=== PATIENT | male | born 1965 | race Caucasian/White ===

== ENCOUNTER 2018-11-06 10:36 | Emergency (ER) | payer BC, SELFPAY ==
[2018-11-06 11:54] LABS: Absolute Lymphocytes (CBC) 0.3 K/uL (0.7-4.9); Absolute Monocytes 0.4 K/uL (0.1-1.3); Absolute Neutrophil 2.5 K/uL (1.8-8.0); Basophils % 0.8 % (0-1.3); Eosinophils % 1.2 % (0-4.4); Hematocrit 27.8 % (39.6-49.0); MPV 6.4 fL (7.6-11.3); Monocytes % 11.2 % (3.3-12.3); RBC Red Blood Cell Count 3.47 M/uL (4.33-5.43)
[2018-11-06 11:59] LABS: Protime INR 1.15
[2018-11-06 12:15] LABS: ALT/SGPT 38 U/L (12-78); AST/SGOT 42 U/L (15-37); Albumin 2.4 g/dL (3.4-5.0); Alkaline Phosphatase 308 U/L (45-117); BUN Blood Urea Nitrogen 38 mg/dL (7-18); Bicarbonate 25 mmol/L (21-32); Bilirubin Direct 0.6 mg/dL (0-0.2); Glucose Level 140 mg/dL (74-106); Magnesium 1.5 mg/dL (1.8-2.4); NT PRO-BNP 4495 pg/mL (<125); Potassium 3.1 mmol/L (3.5-5.1); Protein, Total 7.4 g/dL (6.4-8.2); Sodium Level 138 mmol/L (136-145); Troponin (Emerg Dept Use Only) < 0.02 ng/mL (0.0-0.045)
[2018-11-06] MEDS ORDERED: NA CHLORIDE 0.9% 1,000 ML ONE (12:37)
--- NOTE | 2018-11-06 12:45 | RAD REPORT ---
EXAM DESCRIPTION: RAD - Chest Single View - 11/06/2018 12:39 pm CLINICAL HISTORY: MALAISE Chest pain. COMPARISON: No comparisons FINDINGS: Portable technique limits examination quality. The lungs are underinflated resulting in vascular crowding. The heart is normal in size. No displaced fractures. IMPRESSION: Underinflated lungs.
[2018-11-06 12:46] LABS: Urine Blood TRACE (NEG); Urine Glucose 1+ (NEG); Urine Protein 1+ (NEG)
[2018-11-06] MEDS ORDERED: POTASSIUM 25 MEQ EFFERV TAB ONE (12:47)
[2018-11-06] MEDS ORDERED: Magnesium Sulfate 2gm IVPB 2 G/50 ML BAG IV ONE (12:48)
[2018-11-06 12:55] LABS: Urine RBC <5 /HPF (NONE SEEN)
[2018-11-06 12:56] LABS: Urine Bacteria <20 /HPF (NONE SEEN); Urine Culture Reflex Order REFLEXED; Urine Yeast PRESENT (NONE SEEN)
--- NOTE | 2018-11-06 14:40 | EDPHYS ---
Physician Documentation [facility] Name: Savage Szymanski Age: 53 yrs Sex: Male : 1965 Arrival Date: 11/06/2018 Time: 10:38 Bed 13 Private MD: ED Physician Abdullahi Uribe HPI: 11/06 13:48 This 53 yrs old Male presents to ER via EMS with complaints of General gs Weakness. 13:48 The patient presents to the emergency department with weakness of the entire body, gs generalized weakness, that is moderate. Onset: The symptoms/episode began/occurred 1 month(s) ago, and became persistent. Associated signs and symptoms: Pertinent negatives: altered mental status, dizziness, fever, headache, syncope. Severity of symptoms: At their worst the symptoms were moderate in the emergency department the symptoms are unchanged. Current symptoms: Currently, the patient is not experiencing any symptoms. The patient has experienced similar episodes in the past, multiple times. Historical: - Allergies: 10:30 No Known Allergies; rb1 - Home Meds: 10:30 Metformin Oral [Active]; Insulin [Active]; Metoprolol Tartrate Oral [Active]; rb1 - PMHx: 10:30 Hypertension; Diabetes - IDDM; Legally blind; rb1 - PSHx: 10:30 Bilateral BKA; rb1 - Immunization history:: Adult Immunizations up to date. - Social history:: Smoking status: Patient uses tobacco products, chewing tobacco. - Ebola Screening: : Patient negative for fever greater than or equal to 101.5 degrees Fahrenheit, and additional compatible Ebola Virus Disease symptoms. ROS: 13:48 All other systems are negative. gs Exam: 13:48 Head/Face: Normocephalic, atraumatic. Eyes: Pupils equal round and reactive to light, gs extra-ocular motions intact. Lids and lashes normal. Conjunctiva and sclera are non-icteric and not injected. Cornea within normal limits. Periorbital areas with no swelling, redness, or edema. ENT: Nares patent. No nasal discharge, no septal abnormalities noted. Tympanic membranes are normal and external auditory canals are clear. Oropharynx with no redness, swelling, or masses, exudates, or evidence of obstruction, uvula midline. Mucous membranes moist. Neck: Trachea midline, no thyromegaly or masses palpated, and no cervical lymphadenopathy. Supple, full range of motion without nuchal rigidity, or vertebral point tenderness. No Meningismus. Chest/axilla: Normal chest wall appearance and motion. Nontender with no deformity. No lesions are appreciated. Cardiovascular: Regular rate and rhythm with a normal S1 and S2. No gallops, murmurs, or rubs. Normal PMI, no JVD. No pulse deficits. Respiratory: Lungs have equal breath sounds bilaterally, clear to auscultation and percussion. No rales, rhonchi or wheezes noted. No increased work of breathing, no retractions or nasal flaring. Abdomen/GI: Soft, non-tender, with normal bowel sounds. No distension or tympany. No guarding or rebound. No evidence of tenderness throughout. Back: No spinal tenderness. No costovertebral tenderness. Full range of motion. Skin: Warm, dry with normal turgor. Normal color with no rashes, no lesions, and no evidence of cellulitis. Neuro: Awake and alert, GCS 15, oriented to person, place, time, and situation. Cranial nerves II-XII grossly intact. Motor strength 5/5 in all extremities. Sensory grossly intact. Cerebellar exam normal. Normal gait. 13:48 Constitutional: The patient appears alert, awake. 13:48 Musculoskeletal/extremity: Exam is negative for acute changes. Vital Signs: 10:30 BP 178 / 109; Pulse 96; Resp 19; Temp 97.7(O); Pulse Ox 100% on R/A; Weight 72.57 kg rb1 (R); Height 4 ft. 5 in. (134.62 cm) (R); Pain 0/10; 11:30 BP 153 / 80; Pulse 96; Resp 17; Pulse Ox 100% on R/A; rb1 12:30 BP 161 / 97; Pulse 95; Resp 16; Pulse Ox 99% on R/A; rb1 13:29 BP 162 / 90; Pulse 88; Resp 17; Pulse Ox 98% on R/A; rb1 14:28 BP 158 / 88; Pulse 92; Resp 16; Pulse Ox 99% on R/A; Pain 0/10; rb1 15:28 BP 157 / 91; Pulse 93; Resp 17; Pulse Ox 96% on R/A; rb1 10:30 Body Mass Index 40.05 (72.57 kg, 134.62 cm) rb1 MDM: 10:42 Patient medically screened. [facility] 13:48 Data reviewed: vital signs, nurses notes, lab test result(s), EKG, radiologic studies. Counseling: I had a detailed discussion with the patient and/or guardian regarding: the historical points, exam findings, and any diagnostic results supporting the discharge/admit diagnosis, lab results, radiology results, the need for outpatient follow up. Response to treatment: the patient's symptoms have markedly improved after treatment. 11/06 10:46 Order name: Basic Metabolic Panel; Complete Time: 12:28 11/06 10:46 Order name: CBC with Diff; Complete Time: 12: 11/06 10:46 Order name: LFT's; Complete Time: 12: 11/06 10:46 Order name: Magnesium; Complete Time: 12: 11/06 10:46 Order name: NT PRO-BNP; Complete Time: 12: 11/06 10:46 Order name: PT-INR; Complete Time: 12: 11/06 10:46 Order name: Troponin (emerg Dept Use Only); Complete Time: 12: 11/06 10:46 Order name: Urine Microscopic Only; Complete Time: 13: 11/06 10:46 Order name: XRAY Chest (1 view); Complete Time: 13: 11/06 10:46 Order name: EKG; Complete Time: 10:48 11/06 10:46 Order name: Cardiac monitoring; Complete Time: 12:49 11/06 10:46 Order name: EKG - Nurse/Tech; Complete Time: 12:49 11/06 10:46 Order name: IV Saline Lock; Complete Time: 12:49 11/06 10:46 Order name: Labs collected and sent; Complete Time: 12:49 11/06 10:46 Order name: O2 Per Protocol; Complete Time: 12:49 11/06 10:49 Order name: Urine Culture [facility] 11/06 12:44 Order name: Urine Dipstick--Ancillary (enter results); Complete Time: 13:09 11/06 10:46 Order name: O2 Sat Monitoring; Complete Time: 12:49 11/06 10:46 Order name: Urine Dipstick-Ancillary (obtain specimen); Complete Time: 12:49 11/06 10:49 Order name: Cardiac monitoring; Complete Time: 13:51 [facility] 11/06 10:49 Order name: EKG - Nurse/Tech; Complete Time: 11:30 [facility] 11/06 10:49 Order name: IV Saline Lock; Complete Time: 13:50 [facility] 11/06 10:49 Order name: Labs collected and sent; Complete Time: 13:50 [facility] 11/06 10:49 Order name: O2 Per Protocol; Complete Time: 11:30 [facility] 11/06 10:49 Order name: O2 Sat Monitoring; Complete Time: 11:30 [facility] 11/06 10:49 Order name: Urine Dipstick-Ancillary (obtain specimen); Complete Time: 13:49 [facility] Administered Medications: 12:20 Drug: NS 0.9% 1000 ml Route: IV; Rate: 1 bolus; Site: right antecubital; rb1 13:41 Follow up: IV Status: Completed infusion rb1 12:43 Drug: Magnesium Sulfate 2 grams Route: IVPB; Infused Over: 2 hrs; Site: right rb1 antecubital; 12:43 Drug: Potassium Effervescent Tablet 50 mEq Route: PO; rb1 13:10 Follow up: Response: No adverse reaction rb1 Disposition: 11/06/18 14:39 Discharged to Home. Impression: Weakness, Hypokalemia, Hypomagnesemia. - Condition is Stable. - Discharge Instructions: Hypomagnesemia, Weakness, Fatigue, Hypokalemia. - Medication Reconciliation Form, Thank You Letter, Antibiotic Education, Prescription Opioid Use form. - Follow up: Private Physician; When: 2 - 3 days; Reason: Re-evaluation by your physician. Signatures: Dispatcher [employer] Rey Anthony MD MD cha Barber, Rebecca, RN RN rb1 Abdullahi Uribe MD MD Corrections: (The following items were deleted from the chart) 11:35 10:53 Chest Single View+RAD.RAD.BRZ ordered. EDMS EDMS 13:35 10:50 BASIC METABOLIC PANEL+C.LAB.BRZ ordered. EDMS EDMS 13:35 10:50 HEPATIC FUNCTION+C.LAB.BRZ ordered. EDMS EDMS 13:35 10:50 MAGNESIUM+C.LAB.BRZ ordered. EDMS EDMS 13:35 10:50 PROBNP+C.LAB.BRZ ordered. EDMS EDMS 13:35 10:50 TROPONIN (EMERG DEPT USE ONLY)+C.LAB.BRZ ordered. EDMS EDMS 13:35 10:50 LIPASE+C.LAB.BRZ ordered. EDMS EDMS 13:36 10:50 CBC+H.LAB.BRZ ordered. EDMS EDMS 13:36 10:50 PROTIME (+INR)+COAG.LAB.BRZ ordered. EDNM EDMS 16:07 14:39 11/06/2018 14:39 Discharged to Home. Impression: Weakness; Hypokalemia; rb1 Hypomagnesemia. Condition is Stable. Forms are Medication Reconciliation Form, Thank You Letter, Antibiotic Education, Prescription Opioid Use. Follow up: Private Physician; When: 2 - 3 days; Reason: Re-evaluation by your physician. gs
--- NOTE | 2018-11-06 14:40 | ER ---
Nurse's Notes [facility] Name: Savage Szymanski Age: 53 yrs Sex: Male : 1965 Arrival Date: 11/06/2018 Time: 10:38 Bed 13 Private MD: Diagnosis: Weakness;Hypokalemia;Hypomagnesemia Presentation: 11/06 10:30 Presenting complaint: EMS states: 53 yr. old, A \\T\\ O x 4. c/o of generalized weakness, rb1 onset is unknown, has been going on a long time. History of HTN, Diabetes, and Legally Blind. BP 174/92, P 102, 98% RA, T 97.8 BGL 165. NKA. Denies pain. Transition of care: patient was not received from another setting of care. Onset of symptoms is unknown. Risk Assessment: Do you want to hurt yourself or someone else? Patient reports no desire to harm self or others. Care prior to arrival: None. 10:30 Method Of Arrival: EMS: [facility] 10:30 Acuity: ROSA 3 rb1 10:30 Initial Sepsis Screen: Does the patient have a suspected source of infection? No. rb1 Patient's initial sepsis screen is negative. 10:55 Initial Sepsis Screen: Does the patient meet any 2 criteria?. rb1 Triage Assessment: 10:30 General: Appears in no apparent distress. comfortable, Behavior is calm, cooperative, rb1 Reports fatigue for Denies fever, feeling ill. General:. Pain: Denies pain. Neuro: Level of Consciousness is awake, alert, obeys commands, Oriented to person, place, time, situation. Cardiovascular: Capillary refill < 3 seconds is brisk in bilateral fingers. Respiratory: Airway is patent Respiratory effort is even, unlabored, Respiratory pattern is regular, symmetrical, Denies shortness of breath. GI: No signs and/or symptoms were reported involving the gastrointestinal system. : No signs and/or symptoms were reported regarding the genitourinary system. Derm: Skin is pink, warm \\T\\ dry. Musculoskeletal: Amputation of Bilateral BKA. Historical: - Allergies: 10:30 No Known Allergies; rb1 - Home Meds: 10:30 Metformin Oral [Active]; Insulin [Active]; Metoprolol Tartrate Oral [Active]; rb1 - PMHx: 10:30 Hypertension; Diabetes - IDDM; Legally blind; rb1 - PSHx: 10:30 Bilateral BKA; rb1 - Immunization history:: Adult Immunizations up to date. - Social history:: Smoking status: Patient uses tobacco products, chewing tobacco. - Ebola Screening: : Patient negative for fever greater than or equal to 101.5 degrees Fahrenheit, and additional compatible Ebola Virus Disease symptoms. Screenin:30 Abuse screen: Denies threats or abuse. Nutritional screening: No deficits noted. rb1 Tuberculosis screening: No symptoms or risk factors identified. Fall Risk No fall in past 12 months (0 pts). Secondary diagnosis (15 points) impaired mobility, No IV (0 pts). Ambulatory Aid- Crutches/Cane/Walker (15 pts). Gait- Impaired (20 pts.). Mental Status- Oriented to own ability (0 pts). Total Rodriguez Fall Scale indicates High Risk Score (45 or more points). Fall prevention measures have been instituted. Side Rails Up X 2 Placed Close to Nursing Station 1:1 Attendant Assigned Frequent Obs/Assessments Occuring As available patient and family educated on Fall Prevention Program and Strategies. Assessment: 10:30 General: See triage assessment. rb1 11:30 Reassessment: Patient appears in no apparent distress at this time. No changes from rb1 previously documented assessment. 12:30 Reassessment: Patient appears in no apparent distress at this time. Patient and/or rb1 family updated on plan of care and expected duration. Pain level reassessed. Patient is alert, oriented x 3, equal unlabored respirations, skin warm/dry/pink. 13:29 Reassessment: Patient appears in no apparent distress at this time. No changes from rb1 previously documented assessment. Pt. is watching TV. 13:51 Reassessment: I asked the pt. if I could help him get cleaned up because he had wet rb1 himself, but he stated, "I am not wet, I'm fine." He refused to let me assist him. 14:28 Reassessment: Patient appears in no apparent distress at this time. Patient and/or rb1 family updated on plan of care and expected duration. Pain level reassessed. Patient is alert, oriented x 3, equal unlabored respirations, skin warm/dry/pink. Pt. is watching TV. 14:28 Reassessment: Pt. continues to refuse my assistance in getting out of his wet shorts rb1 and getting cleaned up. 15:27 Reassessment: Patient appears in no apparent distress at this time. No changes from rb1 previously documented assessment. Discharge pending due to transportation. Waiting for EMS for transport. 15:53 Reassessment: Pt. will not allow me to clean him up before he is transported home by [facility]. [facility] witnessed the pt. refusal. 16:10 Reassessment: Called Allyson at [phone], pt. caregiver, to update her on pt. status.rb1 Vital Signs: 10:30 BP 178 / 109; Pulse 96; Resp 19; Temp 97.7(O); Pulse Ox 100% on R/A; Weight 72.57 kg rb1 (R); Height 4 ft. 5 in. (134.62 cm) (R); Pain 0/10; 11:30 BP 153 / 80; Pulse 96; Resp 17; Pulse Ox 100% on R/A; rb1 12:30 BP 161 / 97; Pulse 95; Resp 16; Pulse Ox 99% on R/A; rb1 13:29 BP 162 / 90; Pulse 88; Resp 17; Pulse Ox 98% on R/A; rb1 14:28 BP 158 / 88; Pulse 92; Resp 16; Pulse Ox 99% on R/A; Pain 0/10; rb1 15:28 BP 157 / 91; Pulse 93; Resp 17; Pulse Ox 96% on R/A; rb1 10:30 Body Mass Index 40.05 (72.57 kg, 134.62 cm) rb1 ED Course: 10:30 Arm band placed on right wrist. rb1 10:30 Patient has correct armband on for positive identification. Bed in low position. Call rb1 light in reach. Side rails up X2. Pulse ox on. NIBP on. Warm blanket given. 10:38 Patient arrived in ED. rb1 10:42 Triage completed. rb1 10:42 Rey Souza MD is Attending Physician. leti 10:44 Abdullahi Uribe MD is Attending Physician. tw2 11:15 Missed attempt(s): 22 gauge in right antecubital area. rb1 11:19 EKG done, by technical staff assistant. reviewed by Abdullahi Uribe MD. sm3 11:29 Nataly Blackburn, RN is Primary Nurse. rb1 11:30 Inserted saline lock: 22 gauge in right antecubital area, using aseptic technique. tw2 Blood collected. 12:40 X-ray completed. Portable x-ray completed in exam room. Patient tolerated procedure sw well. 12:40 XRAY Chest (1 view) In Process Unspecified. EDMS 12:48 Urine collected: clean catch specimen, cloudy, marion colored. jb1 16:12 No provider procedures requiring assistance completed. IV discontinued, intact, rb1 bleeding controlled, No redness/swelling at site. Pressure dressing applied. Administered Medications: 12:20 Drug: NS 0.9% 1000 ml Route: IV; Rate: 1 bolus; Site: right antecubital; rb1 13:41 Follow up: IV Status: Completed infusion rb1 12:43 Drug: Magnesium Sulfate 2 grams Route: IVPB; Infused Over: 2 hrs; Site: right rb1 antecubital; 12:43 Drug: Potassium Effervescent Tablet 50 mEq Route: PO; rb1 13:10 Follow up: Response: No adverse reaction rb1 Outcome: 14:39 Discharge ordered by MD. gs 16:12 Patient left the ED. rb1 16:12 Discharged to home via ambulance. rb1 16:12 Condition: stable 16:12 Discharge instructions given to patient, Instructed on discharge instructions, follow up and referral plans. Demonstrated understanding of instructions, follow-up care, Prescriptions given X none Signatures: Dispatcher [employer] EDMS Chilo Richardson jb1 Rey Souza MD MD cha Warren, Shannon sw Barber, Rebecca, RN RN rb1 Brandi Rush RN RN tw2 Abdullahi Uribe MD MD Renee Morales 3 Corrections: (The following items were deleted from the chart) 19:50 16:07 Patient left the ED. rb1 rb1
[2018-11-06 16:15] VITALS: BP 162/90; O2SAT 98
--- NOTE | 2018-11-06 17:12 | EKG ---
Test Date: 2018-11-06 Test Time: 11:11:12 Clerk Supervisor: DT/S MEASUREMENT RESULTS: Intervals: Rate: 95 [place]: 172 QRSD: 128 QT: 404 QTc: 507 [place]: P: 54 NJ: 172 QRS: 261 T: 40 INTERPRETIVE STATEMENTS: Normal sinus rhythm Right bundle branch block Abnormal ECG Compared to ECG 12/07/2004 16:16:00 Right bundle-branch block now present Sinus tachycardia no longer present Incomplete right bundle-branch block no longer present Electronically Signed On 11-06-18 17:11:50 CDT by Marco A Tinsley
== END 2018-11-06 16:07 | disposition home or self-care (01) ==
LOC: ER 10:36
DX: R53.1 Weakness (principal); I10 Essential (primary) hypertension; E11.9 Type 2 diabetes mellitus without complications; Z79.4 Long term (current) use of insulin; E87.6 Hypokalemia; E83.42 Hypomagnesemia
CPT/HCPCS: 36415; 71045; 80048; 80076; 81003; 81015; 82962; 83735; 83880; 84484; 85025; 85610; 87086; 87088; 93005; 96361; 96374; 99284; J3475; J7030

== ENCOUNTER 2018-11-27 18:13 | Emergency (ER) | payer SELFPAY ==
[2018-11-27 20:44] LABS: Urine Blood NEGATIVE (NEG); Urine Glucose 1+ (NEG); Urine Protein 1+ (NEG); Urine Specific Gravity 1.015 (1.005-1.030); Urine pH 5.5 (5.0-7.0)
--- NOTE | 2018-11-27 21:04 | ER ---
Nurse's Notes [facility] Name: Savage Szymanski Age: 53 yrs Sex: Male : 1965 Arrival Date: 11/27/2018 Time: 18:21 Bed 19 Private MD: Diagnosis: Dizziness and giddiness Presentation: 11/27 18:21 Presenting complaint: EMS states: DIZZINESS, MALAISE. Transition of care: patient was bp not received from another setting of care. Onset of symptoms is unknown. Risk Assessment: Do you want to hurt yourself or someone else? Patient reports no desire to harm self or others. Initial Sepsis Screen: Does the patient meet any 2 criteria? HR > 90 bpm. No. Patient's initial sepsis screen is negative. Does the patient have a suspected source of infection? No. Patient's initial sepsis screen is negative. Care prior to arrival: None. 18:21 Method Of Arrival: EMS: [facility] bp 18:21 Acuity: ROSA 3 bp Triage Assessment: 18:24 General: Appears in no apparent distress. uncomfortable, unkempt, Behavior is bp cooperative, appropriate for age, anxious. Pain: Denies pain. EENT: BLIND. Neuro: Level of Consciousness is awake, alert, obeys commands, Oriented to person, place, time, situation, Appropriate for age. Cardiovascular: No deficits noted. Respiratory: Airway is patent Respiratory effort is even, unlabored, Respiratory pattern is regular, symmetrical. GI: No signs and/or symptoms were reported involving the gastrointestinal system. : No signs and/or symptoms were reported regarding the genitourinary system. Derm: No deficits noted. Musculoskeletal: Amputation of BILATERAL BKA. Historical: - Allergies: 18:24 No Known Allergies; bp - Home Meds: 18:24 Metformin Oral [Active]; Metoprolol Tartrate Oral [Active]; bp - PMHx: 18:24 Diabetes - IDDM; Hypertension; legally blind; bp - PSHx: 18:24 BILATERAL BKA; bp - Immunization history:: Adult Immunizations up to date. - Social history:: Smoking status: Patient/guardian denies using tobacco. - Ebola Screening: : Patient negative for fever greater than or equal to 101.5 degrees Fahrenheit, and additional compatible Ebola Virus Disease symptoms Patient denies exposure to infectious person Patient denies travel to an Ebola-affected area in the 21 days before illness onset No symptoms or risks identified at this time. Screenin:26 Abuse screen: Denies threats or abuse. Denies injuries from another. Nutritional bp screening: No deficits noted. Tuberculosis screening: No symptoms or risk factors identified. Fall Risk None identified. Assessment: 18:26 General: SEE TRIAGE ASSESSMENT. bp 19:15 General: Appears in no apparent distress. unkempt, Behavior is anxious. rr5 19:15 Reassessment: awaiting for provider. Pain: Denies pain. Neuro: Level of Consciousness rr5 is awake, alert, obeys commands, Oriented to person, place, time, situation, Appropriate for age Reports dizziness. Cardiovascular: Capillary refill < 3 seconds Patient's skin is warm and dry. Respiratory: Airway is patent Respiratory effort is even, unlabored, Respiratory pattern is regular, symmetrical. GI: Abdomen is round. : No signs and/or symptoms were reported regarding the genitourinary system. EENT: Reports blind. Derm: Skin is intact, Skin temperature is warm. Musculoskeletal: Amputation of below knee. 19:40 Reassessment: Patient appears in no apparent distress at this time. explained and rr5 encouraged to changed his clothes soaked with urine, but patient refused and shouted he does not want to change for now. 20:05 Reassessment: Patient appears in no apparent distress at this time. General: Behavior rr5 is agitated, refused for all the blood work up ordered. ED provider informed.. 21:19 Reassessment: Patient appears in no apparent distress at this time. Patient is alert, rr5 oriented x 3, equal unlabored respirations, skin warm/dry/pink. does not complaint of dizziness. discharged instruction given and explained no complaints made,unable to sign patient is blind. Patient states feeling better. 21:23 Reassessment: coordinated with ED national secretary for the transport going home. rr5 22:14 Reassessment: Patient appears in no apparent distress at this time. Patient is alert, rr5 oriented x 3, equal unlabored respirations, skin warm/dry/pink. endorsed to [facility], vitally stable. no complaints made. signed the form from EMS, that they explained the policy. patient agreed but unable to sign, he is blind. Vital Signs: 18:24 BP 128 / 76; Pulse 100; Resp 20; Temp 97.4; Pulse Ox 95% ; Weight 63.5 kg; bp 19:15 BP 141 / 70; Pulse 98; Resp 20; Temp 97.6; Pulse Ox 99% on R/A; rr5 20:00 BP 145 / 76; Pulse 99; Resp 19; Temp 97.5; Pulse Ox 99% ; rr5 21:20 BP 135 / 75; Pulse 95; Resp 17; Temp 98.7; Pulse Ox 99% on R/A; rr5 22:10 BP 131 / 70; Pulse 90; Resp 17; Temp 98.5; Pulse Ox 99% on R/A; rr5 ED Course: 18:21 Patient arrived in ED. bp 18:22 Triage completed. bp 18:24 Arm band placed on. bp 18:26 Patient has correct armband on for positive identification. Bed in low position. Call bp light in reach. Side rails up X2. 19:04 Randy Chowdary, RN is Primary Nurse. bp 19:12 Abdullahi Uribe MD is Attending Physician. gs 20:10 Primary Nurse role handed off by Randy Chowdary, NARESH ed1 20:19 Baldemar Marino, RN is Primary Nurse. rr5 21:22 No provider procedures requiring assistance completed. Patient did not have IV access rr5 during this emergency room visit. Administered Medications: No medications were administered Point of Care Testing: Blood Glucose: 18:24 Blood Glucose: 127 mg/dL; bp Ranges: Outcome: 21:04 Discharge ordered by . gs 21:22 Discharged to home via ambulance. rr5 21:22 Condition: stable 21:22 Discharge instructions given to patient, Instructed on discharge instructions, follow up and referral plans. Demonstrated understanding of instructions, follow-up care. 22:18 Patient left the ED. rr5 Signatures: Shannen Waddell RN RN ed1 Abdullahi Uribe MD MD Randy Chowdary RN RN Baldemar Marino, NARESH RN rr5
--- NOTE | 2018-11-27 21:04 | EDPHYS ---
Physician Documentation [facility] Name: Savage Szymanski Age: 53 yrs Sex: Male : 1965 Arrival Date: 11/27/2018 Time: 18:21 Bed 19 Private MD: ED Physician Abdullahi Uribe HPI: 11/27 20:59 This 53 yrs old Male presents to ER via EMS with complaints of Dizziness. gs 20:59 Onset: The symptoms/episode began/occurred acutely, today. Context: occurred at home, gs occurred while the patient was at rest, just prior to the episode the patient experienced no apparent symptoms. Modifying factors: The symptoms are alleviated by nothing, the symptoms are aggravated by movement of head. Associated signs and symptoms: Pertinent negatives: abdominal pain, blurred vision, near-syncope, shortness of breath. Severity of symptoms: At their worst the symptoms were moderate in the emergency department the symptoms have resolved. The patient has not experienced similar symptoms in the past. 20:59 says also hungry says no money for food. gs Historical: - Allergies: 18:24 No Known Allergies; bp - Home Meds: 18:24 Metformin Oral [Active]; Metoprolol Tartrate Oral [Active]; bp - PMHx: 18:24 Diabetes - IDDM; Hypertension; legally blind; bp - PSHx: 18:24 BILATERAL BKA; bp - Immunization history:: Adult Immunizations up to date. - Social history:: Smoking status: Patient/guardian denies using tobacco. - Ebola Screening: : Patient negative for fever greater than or equal to 101.5 degrees Fahrenheit, and additional compatible Ebola Virus Disease symptoms Patient denies exposure to infectious person Patient denies travel to an Ebola-affected area in the 21 days before illness onset No symptoms or risks identified at this time. ROS: 20:59 All other systems are negative. gs Exam: 20:59 Head/Face: Normocephalic, atraumatic. Eyes: Pupils equal round and reactive to light, gs extra-ocular motions intact. Lids and lashes normal. Conjunctiva and sclera are non-icteric and not injected. Cornea within normal limits. Periorbital areas with no swelling, redness, or edema. ENT: Nares patent. No nasal discharge, no septal abnormalities noted. Tympanic membranes are normal and external auditory canals are clear. Oropharynx with no redness, swelling, or masses, exudates, or evidence of obstruction, uvula midline. Mucous membranes moist. Neck: Trachea midline, no thyromegaly or masses palpated, and no cervical lymphadenopathy. Supple, full range of motion without nuchal rigidity, or vertebral point tenderness. No Meningismus. Chest/axilla: Normal chest wall appearance and motion. Nontender with no deformity. No lesions are appreciated. Cardiovascular: Regular rate and rhythm with a normal S1 and S2. No gallops, murmurs, or rubs. Normal PMI, no JVD. No pulse deficits. Respiratory: Lungs have equal breath sounds bilaterally, clear to auscultation and percussion. No rales, rhonchi or wheezes noted. No increased work of breathing, no retractions or nasal flaring. Abdomen/GI: Soft, non-tender, with normal bowel sounds. No distension or tympany. No guarding or rebound. No evidence of tenderness throughout. Back: No spinal tenderness. No costovertebral tenderness. Full range of motion. Skin: Warm, dry with normal turgor. Normal color with no rashes, no lesions, and no evidence of cellulitis. 20:59 Constitutional: The patient appears alert, awake, unkempt. 20:59 Musculoskeletal/extremity: Exam is negative for acute changes. 20:59 Neuro: Exam negative for acute changes, Cranial nerves: grossly normal, Motor: moves all fours. Vital Signs: 18:24 BP 128 / 76; Pulse 100; Resp 20; Temp 97.4; Pulse Ox 95% ; Weight 63.5 kg; bp 19:15 BP 141 / 70; Pulse 98; Resp 20; Temp 97.6; Pulse Ox 99% on R/A; rr5 20:00 BP 145 / 76; Pulse 99; Resp 19; Temp 97.5; Pulse Ox 99% ; rr5 21:20 BP 135 / 75; Pulse 95; Resp 17; Temp 98.7; Pulse Ox 99% on R/A; rr5 22:10 BP 131 / 70; Pulse 90; Resp 17; Temp 98.5; Pulse Ox 99% on R/A; rr5 MDM: 19:48 Patient medically screened. 20:59 Data reviewed: vital signs, nurses notes, EKG. ED course: refuses bloodwork rest of gs workup just wants food and to go. 11/27 19:49 Order name: EKG; Complete Time: 19:50 11/27 19:49 Order name: EKG - Nurse/Tech; Complete Time: 20:19 11/27 20:42 Order name: Urine Dipstick--Ancillary (enter results); Complete Time: 21:04 ar5 Administered Medications: No medications were administered Point of Care Testing: Blood Glucose: 18:24 Blood Glucose: 127 mg/dL; bp Ranges: Critical Glucose Levels:Adult <50 mg/dl or >400 mg/dl <40 mg/dl or >180 mg/dl Disposition: 11/27/18 21:04 Discharged to Home. Impression: Dizziness and giddiness. - Condition is Stable. - Discharge Instructions: Dizziness. - Medication Reconciliation Form, Thank You Letter, Antibiotic Education, Prescription Opioid Use, SBAR form form. - Follow up: Private Physician; When: 2 - 3 days; Reason: Re-evaluation by your physician. Signatures: Dispatcher [employer] [facility] Abdullahi Uribe MD MD Randy Chowdary, RN RN Baldemar Marino, RN RN rr5 Corrections: (The following items were deleted from the chart) 22:18 19:50 CBC+H.LAB.BRZ ordered. [facility] EDPR 22:18 19:50 BASIC METABOLIC PANEL+C.LAB.BRZ ordered. [facility] 22:18 21:04 11/27/2018 21:04 Discharged to Home. Impression: Dizziness and giddiness. rr5 Condition is Stable. Forms are Medication Reconciliation Form, Thank You Letter, Antibiotic Education, Prescription Opioid Use. Follow up: Private Physician; When: 2 - 3 days; Reason: Re-evaluation by your physician.
[2018-11-27 23:06] VITALS: O2SAT 99
[2018-11-27 23:10] VITALS: BP 131/70; TEMP 98.5
--- NOTE | 2018-11-28 10:41 | EKG ---
Test Date: 2018-11-27 Test Time: 20:15:02 Barrel Brander: RR MEASUREMENT RESULTS: Intervals: Rate: 101 TX: 182 QRSD: 122 QT: 374 QTc: 484 [place]: P: 60 TX: 182 QRS: -78 T: 61 INTERPRETIVE STATEMENTS: Sinus tachycardia Right bundle branch block Left axis Possible Septal infarct, age undetermined Abnormal ECG Compared to ECG 11/06/2018 11:11:12 Possible Myocardial infarct finding now present Sinus rhythm no longer present Electronically Signed On 11-28-18 10:40:25 CDT by Marco A Tinsley
== END 2018-11-27 22:18 | disposition home or self-care (01) ==
LOC: ER 18:13
DX: R42 Dizziness and giddiness (principal); I10 Essential (primary) hypertension; E11.9 Type 2 diabetes mellitus without complications; Z79.4 Long term (current) use of insulin
CPT/HCPCS: 81003; 93005; 99283

== ENCOUNTER 2018-12-21 22:07 | Inpatient (IN) | payer SELFPAY ==
[2018-12-22] MEDS ORDERED: NA CHLORIDE 0.9% 500 ML ONE (00:11)
[2018-12-22] MEDS ORDERED: MORPHINE 4 MG/ML SYR ONE (00:11)
[2018-12-22] MEDS ORDERED: ONDANSETRON 4 MG/2 ML VIAL ONE (00:11)
[2018-12-22 00:18] LABS: Absolute Lymphocytes (CBC) 0.5 K/uL (0.7-4.9); Absolute Monocytes 0.7 K/uL (0.1-1.3); Absolute Neutrophil 4.4 K/uL (1.8-8.0); Basophils % 0.6 % (0-1.3); Eosinophils % 1.4 % (0-4.4); Hematocrit 29.1 % (39.6-49.0); Lymphocytes % 8.7 % (15.3-44.8); MPV 6.5 fL (7.6-11.3); Monocytes % 11.7 % (3.3-12.3); RBC Red Blood Cell Count 3.58 M/uL (4.33-5.43)
[2018-12-22 00:27] LABS: Albumin 2.3 g/dL (3.4-5.0); Bilirubin Total 0.7 mg/dL (0.2-1.0); Potassium 4.4 mmol/L (3.5-5.1); Protein, Total 6.9 g/dL (6.4-8.2)
[2018-12-22] MEDS ORDERED: FUROSEMIDE 40 MG/4 ML VIAL ONE (02:17)
--- NOTE | 2018-12-22 02:26 | ER ---
Nurse's Notes [facility] Name: Savage Szymanski Age: 53 yrs Sex: Male : 1965 Arrival Date: 12/21/2018 Time: 22:13 Bed 25 Private MD: Diagnosis: Acute and chronic respiratory failure with hypoxia Presentation: 12/21 22:14 Presenting complaint: EMS states: pt c/o difficulty of breathing. Sats at 89-90% RA. ca1 Given O2 at 5LPM SPO2 increased to 95-96%. PT has abdominal distention. 2 weeks at [facility] pt had fluids removed from belly. Pt complains of back pain /. Pt is a double amputee BKA. Has Hx of CHF, NIDDM, GERD. Transition of care: patient was not received from another setting of care. Onset of symptoms was December 21, 2018. Risk Assessment: Do you want to hurt yourself or someone else? Patient reports no desire to harm self or others. Initial Sepsis Screen: Does the patient meet any 2 criteria? No. Patient's initial sepsis screen is negative. Does the patient have a suspected source of infection? No. Patient's initial sepsis screen is negative. Care prior to arrival: Glucose check: 140 Oxygen administered. via nasal cannula. 22:14 Method Of Arrival: EMS: [facility] ca1 22:14 Acuity: ROSA 3 ca1 Triage Assessment: 22:19 General: Appears in no apparent distress. uncomfortable, unkempt, Behavior is calm, ca1 cooperative, appropriate for age, flat. Pain: Complains of pain in abdomen Pain radiates to back Pain currently is 9 out of 10 on a pain scale. Quality of pain is described as pressure, Pain began 1 day ago. Is continuous. Respiratory: Reports shortness of breath at rest Onset: The symptoms/episode began/occurred few days ago, the patient has mild shortness of breath. Historical: - Allergies: 22:19 No Known Allergies; ca1 - Home Meds: 22:19 Metformin Oral [Active]; Metoprolol Tartrate Oral [Active]; ca1 - PMHx: 22:19 Diabetes - IDDM; Hypertension; legally blind; GERD; CHF; ca1 - PSHx: 22:19 BILATERAL BKA; ca1 - Immunization history:: Adult Immunizations not up to date, Flu vaccine is not up to date. - Social history:: Smoking status: Patient uses tobacco products, chewing tobacco. - Ebola Screening: : No symptoms or risks identified at this time. Screenin:20 Abuse screen: Denies threats or abuse. Denies injuries from another. Nutritional ca1 screening: No deficits noted. Tuberculosis screening: No symptoms or risk factors identified. Fall Risk Secondary diagnosis (15 points) impaired mobility, IV access (20 points). Ambulatory Aid- None/Bed Rest/Nurse Assist (0 pts). Assessment: 22:20 General: Appears in no apparent distress. uncomfortable, unkempt, Behavior is ca1 cooperative, appropriate for age. Pain: Complains of pain in abdomen Pain radiates to back Pain currently is 9 out of 10 on a pain scale. Quality of pain is described as pressure, Pain began gradually, several days. Neuro: Level of Consciousness is awake, alert, obeys commands, Oriented to person, place, time, situation. Cardiovascular: Heart tones S1 S2 present Capillary refill < 3 seconds Patient's skin is warm and dry. Rhythm is sinus tachycardia. Respiratory: Reports shortness of breath at rest since few days ago Airway is patent Respiratory effort is even, unlabored, Respiratory pattern is regular, symmetrical, Breath sounds are clear bilaterally. GI: Abdomen is round distended, noted to have ascites, Bowel sounds present X 4 quads. Abd is rigid X 4 quads. : No deficits noted. No signs and/or symptoms were reported regarding the genitourinary system. EENT: No deficits noted. No signs and/or symptoms were reported regarding the EENT system. Derm: Skin is intact, is healthy with good turgor, Skin is pink, warm \T\ dry. Musculoskeletal: Amputation of BKA Circulation, motion, and sensation intact. Capillary refill < 3 seconds. 12/22 01:16 Reassessment: Patient appears in no apparent distress at this time. Patient and/or mg2 family updated on plan of care and expected duration. Pain level reassessed. not in distress. 02:46 Reassessment: pt is A\T\O x 4, resp unlabored, awaiting discharge, [facility] contacted for wheelchair van for transport home but must wait approval which may not be until 0600 will monitor pt until transportation available. 04:30 Reassessment: pt appears to be sleeping, eyes closed, resp tachypneic, juan breath bb sounds clear, Dr Chiu notified. 05:30 Reassessment: pt appears to be sleeping, arouses easily, resp tachypneic, juan breath bb sounds clear to auscultation, Dr Chiu notified and at bedside for reevaluation, new orders received pt medicated see BETTE, pt now to be admitted for further evaluation and treatment. 07:10 Reassessment: Report received from NARESH enciso. Pt in CT at this time. When patient ss returns, will obtain PIV access and attempt to call report to fourth floor. 07:38 Reassessment: Attempted to call report. Nurse unavailable at this time. ss Vital Signs: 12/21 22:19 BP 130 / 95; Pulse 109; Resp 20; Temp 98.5; Pulse Ox 96% on R/A; Weight 72.57 kg; ca1 Height 5 ft. 6 in. (167.64 cm); Pain 9/10; 12/22 01:13 BP 115 / 80; Pulse 111; Resp 18; Temp 98.6(O); Pulse Ox 100% on 2 lpm NC; Pain 4/10; mg2 01:53 BP 116 / 79; Pulse 111; Resp 20; Temp 98.6(O); Pulse Ox 97% on 2 lpm NC; mg2 02:51 BP 125 / 80; Pulse 106; Resp 24 S; Temp 98(O); Pulse Ox 92% on 2 lpm NC; bb 04:30 BP 117 / 71; Pulse 106; Resp 26 S; Pulse Ox 91% on 2 lpm NC; bb 05:30 BP 120 / 77; Pulse 107; Resp 32 S; Temp 98.4; Pulse Ox 89% on 2 lpm NC; bb 07:35 BP 132 / 84; Pulse 102; Resp 24; Pulse Ox 100% on 2 lpm NC; Pain 9/10; ss 12/21 22:19 Body Mass Index 25.82 (72.57 kg, 167.64 cm) ca1 ED Course: 12/21 22:13 Patient arrived in ED. ca1 22:18 Triage completed. ca1 22:19 Arm band placed on right wrist. ca1 22:20 Initial lab(s) drawn, by me, held in ED. Inserted saline lock: 22 gauge in right jp3 antecubital area, using aseptic technique. Blood collected. 22:25 Call light in reach. Side rails up X 1. Side rails up X2. Warm blanket given. Pillow jp3 given. 22:25 manager monitoring on. Pulse ox on. NIBP on. jp3 22:32 Oxygen administration via nasal cannula 1.5L/min Response to oxygen therapy: symptoms jp3 improved. 22:38 EKG done, by ED staff. jp3 22:46 Roselia Cross, NARESH is Primary Nurse. ca1 23:23 Abilio Chiu MD is Attending Physician. ps1 06/01 01:00 X-ray completed. Portable x-ray completed in exam room. Patient tolerated procedure kw well. 01:03 Abdomen Acute Series XRAY In Process Unspecified. EDMS 01:13 No provider procedures requiring assistance completed. mg2 05:40 Ann Boyce MD is Hospitalizing Provider. ps1 06:10 Initial lab(s) drawn, by me, sent to lab. First set of blood cultures drawn by me. bb Inserted saline lock: 20 gauge in left antecubital area, using aseptic technique. Blood collected. 06:18 Patient admitted, IV remains in place. bb 06:[address] via stretcher. bb 07:12 Report given to Oralia INFANTE. bb 07:35 IV discontinued, intact, bleeding controlled, No redness/swelling at site. Pressure ss dressing applied, 20 gauge in L AC dc'd as it was not returning blood and/or flushing. 07:35 Inserted saline lock: 22 gauge in right upper arm, using aseptic technique. Blood sv collected. Administered Medications: 00:01 Drug: NS 0.9% 500 ml Route: IV; Rate: 1 bolus; Site: right antecubital; mg2 01:00 Follow up: IV Status: Completed infusion; IV Intake: 500ml bb 00:01 Drug: morphine 4 mg Route: IVP; Site: right antecubital; mg2 01:17 Follow up: Response: No adverse reaction; Marked relief of symptoms mg2 00:01 Drug: Zofran 4 mg Route: IVP; Site: right antecubital; mg2 01:17 Follow up: Response: No adverse reaction; Marked relief of symptoms mg2 02:04 Drug: Lasix 40 mg Route: IVP; Site: right antecubital; mg2 02:54 Follow up: Response: No adverse reaction bb 06:27 Drug: Rocephin 1 grams Route: IV; Rate: calculated rate; Site: left antecubital; bb 06:37 Follow up: IV Intake: 10ml bb Point of Care Testing: Blood Glucose: 12/21 22:26 Blood Glucose: 170 mg/dL; jp3 Ranges: Intake: 12/22 01:00 IV: 500ml; Total: 500ml. bb 06:37 IV: 10ml; Total: 510ml. bb Output: 12/21 23:30 Urine: 200ml (Voided); Total: 200ml. mg2 Outcome: 12/22 02:26 Discharge ordered by . ps1 05:40 Decision to Hospitalize by Provider. ps1 06:18 Instructed on the need for admit, pt verbalized understanding of and agrees to plan of bb care 08:01 Admitted to Tele accompanied by ansley, room 405, with chart, Report called to leatha Freedman RN 08:16 Patient left the ED. ss Signatures: Dispatcher [employer] EDMS Fior Schneider RN RN sv Ballard, Brenda, RN RN bb Smirch, Shelby, RN RN ss Whitley, Kimberlee kw Singer, Phillip, MD MD ps1 Taran Otto RN RN mg2 Alex Bird 3 Roselia Cross, RN RN ca1 Corrections: (The following items were deleted from the chart) 12/21 22:38 22:20 Inserted saline lock: 22 gauge in right antecubital area, using aseptic 3 technique. Blood collected. [facility] 22:38 22:20 Initial lab(s) drawn, by md, sent to lab. [facility] 22:45 22:25 Pulse ox on. NIBP on. [facility] 22:45 22:20 Initial lab(s) drawn, by md, Shirley [facility] 12/22 01:15 01:13 BP 115 / 80; Pulse 111bpm; Resp 18bpm; Pulse Ox 100% RA; mg2 mg2 01:54 01:13 BP 115 / 80; Pulse 111bpm; Resp 18bpm; Pulse Ox 100% RA; Temp 98.6F Oral; Pain mg2 4/10; mg2 02:59 02:51 BP 125 / 80; Pulse 106bpm; Resp 18bpm; Spontaneous; Pulse Ox 92% 2 lpm Nasal bb Cannula; Temp 98F Oral; bb 07:40 07:35 Inserted saline lock: 22 gauge in right upper arm, using aseptic technique. Blood sv collected. ss
--- NOTE | 2018-12-22 02:27 | EDPHYS ---
Physician Documentation [facility] Name: aSvage Szymanski Age: 53 yrs Sex: Male : 1965 Arrival Date: 12/21/2018 Time: 22:13 Bed 25 Private MD: ED Physician Abilio Chiu HPI: 12/22 01:16 This 53 yrs old Male presents to ER via EMS with complaints of Breathing ps1 Difficulty. 02:02 Patient states that he has difficulty breathing. He was recently discharged/AMA from [address] where he was admitted for NSTEMI/GERARD/Hyperglycemia 12/15/2018 after Lasix therapy. He states that he wanted to dip snuff and would not stay in the hospital or go to SNF for this reason. Had an echo and cards eval. He has minimal diastolic filling abnormality with preserved EF. Trop's were mildly elevated at 0.052. He was and is non-compliant with medications and was supposed to go to SNF but refused and was left AMA from the hospital. Since then he has had reported difficulty breathing and says his stomach hurts. He is afebrile not hypoxic. He is yelling in the room. . Historical: - Allergies: 12/21 22:19 No Known Allergies; ca1 - Home Meds: 22:19 Metformin Oral [Active]; Metoprolol Tartrate Oral [Active]; ca1 - PMHx: 22:19 Diabetes - IDDM; Hypertension; legally blind; GERD; CHF; ca1 - PSHx: 22:19 BILATERAL BKA; ca1 - Immunization history:: Adult Immunizations not up to date, Flu vaccine is not up to date. - Social history:: Smoking status: Patient uses tobacco products, chewing tobacco. - Ebola Screening: : No symptoms or risks identified at this time. ROS: 12/22 02:02 Constitutional: Negative for fever, chills, and weight loss, Eyes: Negative for injury, ps1 pain, redness, and discharge, Cardiovascular: Negative for chest pain, palpitations, and edema, Skin: Negative for injury, rash, and discoloration, Neuro: Negative for headache, weakness, numbness, tingling, and seizure. Cardiovascular: Positive for orthopnea. Respiratory: Positive for shortness of breath. Abdomen/GI: Positive for abdominal pain, does not localize. Exam: 02:02 Constitutional: This is a well developed, well nourished patient who is awake, alert, ps1 and in no acute distress. Head/Face: Normocephalic, atraumatic. Eyes: Pupils equal round and reactive to light, extra-ocular motions intact. Lids and lashes normal. Conjunctiva and sclera are non-icteric and not injected. Chest/axilla: Normal chest wall appearance and motion. Nontender with no deformity. No lesions are appreciated. 02:02 Cardiovascular: Rate: tachycardic, Rhythm: regular, Pulses: no pulse deficits are appreciated. 02:02 Respiratory: the patient does not display signs of respiratory distress, Respirations: normal, Breath sounds: are clear throughout, patient is able to yell in full sentences without difficulty. 02:02 Abdomen/GI: Inspection: abdomen appears normal, Bowel sounds: normal, Palpation: abdomen is soft and non-tender. 02:02 Musculoskeletal/extremity: Extremities: bilateral BKA. . Vital Signs: 12/21 22:19 BP 130 / 95; Pulse 109; Resp 20; Temp 98.5; Pulse Ox 96% on R/A; Weight 72.57 kg; ca1 Height 5 ft. 6 in. (167.64 cm); Pain 9/10; 12/22 01:13 BP 115 / 80; Pulse 111; Resp 18; Temp 98.6(O); Pulse Ox 100% on 2 lpm NC; Pain 4/10; mg2 01:53 BP 116 / 79; Pulse 111; Resp 20; Temp 98.6(O); Pulse Ox 97% on 2 lpm NC; mg2 02:51 BP 125 / 80; Pulse 106; Resp 24 S; Temp 98(O); Pulse Ox 92% on 2 lpm NC; bb 04:30 BP 117 / 71; Pulse 106; Resp 26 S; Pulse Ox 91% on 2 lpm NC; bb 05:30 BP 120 / 77; Pulse 107; Resp 32 S; Temp 98.4; Pulse Ox 89% on 2 lpm NC; bb 07:35 BP 132 / 84; Pulse 102; Resp 24; Pulse Ox 100% on 2 lpm NC; Pain 9/10; ss 12/21 22:19 Body Mass Index 25.82 (72.57 kg, 167.64 cm) ca1 MDM: 00:13 Patient medically screened. ps1 02:23 Data reviewed: vital signs, nurses notes, lab test result(s), radiologic studies, and ps1 as a result, I will discharge patient. Counseling: I had a detailed discussion with the patient and/or guardian regarding: the historical points, exam findings, and any diagnostic results supporting the discharge/admit diagnosis, lab results, radiology results, the need for outpatient follow up, patients labs improved since discharge from [facility]. CXR improved but may have PNA, less likely 2/2 labs and no fever, platelike atelectasis. . 05:36 ED course: patient since being observed in the emergency department has become hypoxic ps1 on BNC, tachypneic, and tachy. Still afebrile. On 4L BNC. Will change disposition to observation. . 12/21 22:26 Order name: Glucose, Ancillary Testing; Complete Time: 00:14 [facility] 12/21 23:53 Order name: CBC with Diff; Complete Time: 00:21 [facility] 12/21 23:53 Order name: Lipase; Complete Time: 00:44 [facility] 12/21 23:53 Order name: CMP; Complete Time: 00:44 [facility] 12/22 06:16 Order name: Blood Culture Adult (2) bb 12/22 06:16 Order name: Lactate bb 12/22 00:22 Order name: Abdomen Acute Series XRAY [facility] 12/22 06:08 Order name: CT Abd/Pelvis - W/Contrast [facility] 12/22 06:30 Order name: Clostridium difficile DNA [facility] 12/22 07:22 Order name: CT [facility] 12/21 23:10 Order name: EKG; Complete Time: 23:11 ca1 12/21 23:10 Order name: EKG - Nurse/Tech; Complete Time: 23:10 ca1 12/21 23:53 Order name: IV Saline Lock; Complete Time: 23:56 ps1 12/21 23:53 Order name: Labs collected and sent; Complete Time: 23:56 ps1 Administered Medications: 00:01 Drug: NS 0.9% 500 ml Route: IV; Rate: 1 bolus; Site: right antecubital; mg2 01:00 Follow up: IV Status: Completed infusion; IV Intake: 500ml bb 00:01 Drug: morphine 4 mg Route: IVP; Site: right antecubital; mg2 01:17 Follow up: Response: No adverse reaction; Marked relief of symptoms mg2 00:01 Drug: Zofran 4 mg Route: IVP; Site: right antecubital; mg2 01:17 Follow up: Response: No adverse reaction; Marked relief of symptoms mg2 02:04 Drug: Lasix 40 mg Route: IVP; Site: right antecubital; mg2 02:54 Follow up: Response: No adverse reaction bb 06:27 Drug: Rocephin 1 grams Route: IV; Rate: calculated rate; Site: left antecubital; bb 06:37 Follow up: IV Intake: 10ml bb Point of Care Testing: Blood Glucose: 12/21 22:26 Blood Glucose: 170 mg/dL; jp3 Ranges: Critical Glucose Levels:Adult <50 mg/dl or >400 mg/dl <40 mg/dl or >180 mg/dl Disposition: 12/22/18 05:40 Hospitalization ordered by Ann Boyce for Observation. Preliminary diagnosis is Acute and chronic respiratory failure with hypoxia. - Bed requested for Telemetry/MedSurg (observation). - Status is Observation. ss - Condition is Fair. - Problem is an acute exacerbation. - Symptoms have worsened. UTI on Admission? No Signatures: Dispatcher [employer] EDMS Anne Alamo RN RN bb Oralia White RN RN ss Lisa Stockton RN RN Abilio Chiu MD MD ps1 Taran Otto RN RN mg2 Roselia Cross RN NARESH ca1 Corrections: (The following items were deleted from the chart) 12/22 05:38 02:23 Counseling: I had a detailed discussion with the patient and/or guardian ps1 regarding: the historical points, exam findings, and any diagnostic results supporting the discharge/admit diagnosis, lab results, radiology results, the need for outpatient follow up, ps1 05:38 02:23 ED course: patients labs improved since discharge from [facility]. CXR improved. ps1 Patient is sleeping without difficulty in the room and maintaining good SPO2. Patient given lasix as he should at home. Pt stable for discharge. No objective data to support patients complaints at this time. . ps1 05:39 02:26 12/22/2018 02:26 Discharged to Home. Impression: Hyperglycemia, unspecified; ps1 Shortness of breath; Chronic diastolic (congestive) heart failure. Condition is Stable. Forms are Medication Reconciliation Form, Thank You Letter, Antibiotic Education, Prescription Opioid Use. Follow up: Private Physician; When: As needed; Reason: Further diagnostic work-up, Recheck today's complaints, Continuance of care, Re-evaluation by your physician. Follow up: Emergency Department; When: As needed; Reason: Fever > 102 F, Worsening of condition. Problem is chronic. Symptoms are unchanged. ps1 06:42 05:40 Hospitalization Ordered by Ann Boyce MD for Observation. Preliminary cg diagnosis is Acute and chronic respiratory failure with hypoxia. Bed requested for Telemetry/MedSurg (observation). Status is Observation. Condition is Fair. Problem is an acute exacerbation. Symptoms have worsened. UTI on Admission? No. ps1 08:16 06:42 12/22/2018 05:40 Hospitalization Ordered by Ann Boyce MD for Observation. ss Preliminary diagnosis is Acute and chronic respiratory failure with hypoxia. Bed requested for Telemetry/MedSurg (observation). Status is Observation. Condition is Fair. Problem is an acute exacerbation. Symptoms have worsened. UTI on Admission? No. cg
[2018-12-22] MEDS ORDERED: CEFTRIAXONE/SWI 1gm 1 GM/10 ML SYR ONE (06:01)
--- NOTE | 2018-12-22 07:21 | RAD REPORT ---
EXAM DESCRIPTION: CT - Abdomen Pelvis Wo Contrast - 12/22/2018 7:09 am CLINICAL HISTORY: Abdominal pain. ABD PAIN COMPARISON: No comparisons TECHNIQUE: CT imaging of the abdomen and pelvis was performed without contrast. Solid organ and vasc ular assessment is limited due to lack of IV contrast. All CT scans are performed using dose optimization technique as appropriate and may include automated exposure control or mA/KV adjustment according to patient size. FINDINGS: Small bilateral pleural effusions with atelectasis in both lung bases. Heterogenous liver echotexture is present.Mild thickening of the distal esophagus seen. Moderate sple nomegaly. The pancreas, adrenal glands and kidneys are unremarkable for noncontrast imaging. Mild ascites. No bowel obstruction or free air. The appendix is not identified as a discrete structur e, however, no secondary findings of appendicitis are identified. The osseous structures are within normal limits. IMPRESSION: Mild ascites. Heterogenous liver parenchymal pattern with splenomegaly seen. A limited non-contrast examination was performed as detailed.
[2018-12-22] MEDS ORDERED: ONDANSETRON 4 MG/2 ML VIAL IV PRN (08:01)
[2018-12-22] MEDS: INSULIN -REGULAR HUMAN 50 UNIT/0.5 ML ML SQ SCH ×4 (08:01→21:00)
[2018-12-22] MEDS ORDERED: SODIUM CHLORIDE 0.9% 10ML INJ IV PRN (08:01)
--- NOTE | 2018-12-22 08:33 | EKG ---
Test Date: 2018-12-21 Test Time: 22:38:29 Workers' Compensation Hearings Officer: MANISH MEASUREMENT RESULTS: Intervals: Rate: 106 GA: 162 QRSD: 108 QT: 360 QTc: 478 [place]: P: 44 GA: 162 QRS: -79 T: 43 INTERPRETIVE STATEMENTS: Sinus tachycardia Incomplete right bundle branch block Left axis Lateral infarct, age undetermined Abnormal ECG Compared to ECG 11/27/2018 20:15:02 Myocardial infarct finding still present Electronically Signed On 12-22-18 08:32:25 CDT by Marco A Tinsley
[2018-12-22] MEDS ORDERED: PANTOPRAZOLE 40 MG INJ IVP SCH (09:00)
[2018-12-22] MEDS: FUROSEMIDE 40 MG/4 ML VIAL IV SCH ×2 (10:00→17:03)
[2018-12-22] MEDS: HEPARIN 5000 UNIT/ML 1 ML VIAL SQ SCH ×2 (10:00→21:53)
[2018-12-22] MEDS: ASPIRIN EC 81 MG TAB PO SCH (10:00)
[2018-12-22 10:09] LABS: Thyroid Stimulating Hormone 1.92 uIU/mL (0.360-3.740)
--- NOTE | 2018-12-22 10:30 | CON ---
Reason For Consult: Edema. History Of Present Illness: Mr. Szymanski is a gentleman, who is not aware of having any type of hear t disease. He has underlying liver disease, diabetes, obesity, and apparently he has marked ascites. A paracentesis is planned using radiology assistance for localizing free fluid in the abdomen. CT of the abdomen reveals ascites. Apparently, just within the past couple of weeks, the patient has beverly d ascites fluid removed at the hospital in [facility]. We do not have any rec ords of that hospitalization. The patient is not a good history manager of compensation. It looks like he has some ab normalities on his liver that could be fatty liver steatosis, perhaps a mass is present, I am not alberto lly sure, the radiology report is unavailable at the time of this dictation. The patient is a do-not -resuscitate assessment right now. The patient denies having chest pain. Physical Examination: Vital Signs: He is 5 feet 6 inches, 160 pounds. General: He is obese and there is centripetal obesity, most likely ascites. He is alert and oriente d, laying on his side. Lungs: Do not reveal crackles. Abdomen: I cannot palpate any organs, and in the abdomen there seems to be shifting dullness. Impression: My impression is that the patient seems to have liver failure with ascites, not sure any of the details behind it. I do not think there is underlying heart disease causing this, although t he EKG shows a questionable lateral infarct. It could be a pseudo-infarct. We can do an echocardiog charles to see what we learn. The patient is [id number], and I think the cause for his edema and ascites is hepatic rather than cardiac, but an echocardiogram will be useful at some point. It is certainly not emergent. LIANA/ALCIRA Voice ID: [id number] Report ID: [id number]
[2018-12-22 10:45] LABS: Uric Acid 6.3 mg/dL (3.5-7.2)
--- NOTE | 2018-12-22 10:45 | P.HP ---
Certification for Inpatient Patient admitted to: Inpatient With expected LOS: >2 Midnights Patient will require the following post-hospital care: Senior Care Practitioner: I am a practitioner with admitting privileges, knowledge of patient current condition, hospital course, and medical plan of care. Services: Services provided to patient in accordance with Admission requirements found in Title 42 Section 412.3 of the Code of Federal Regulations Patient History Date of Service: 12/22/18 Primary Care Provider: None Reason for admission: Shortness of breath History of Present Illness: 53-year-old male presented to the emergency room with shortness of breath. Patient reports that he was seen last week at [facility]. He was found to have non ST wave OR and acute renal injury. Patient was hospitalized. Patient was to go to a skilled facility but the patient left AMA. Patient with underlying history of diabetes, diastolic CHF, CAD, GERD, tobacco abuse and obesity. Patient also has bilateral below-knee amputations. Patient further reports chronic history of diarrhea. He does not have any significant abdominal pain. He has noted some abdominal enlargement. He denies any significant chest pain at this time. No fever chills noted. In the ER patient evaluated. Blood pressure stable. Room-air saturations within normal range. Patient was slightly tachycardic. On lab white count 5.7 , hemoglobin 9.7. Platelet count 182. Sodium 138, potassium 4.4, BUN of 24, creatinine 1.6 with a GFR 44. Glucose 143. Lipase unremarkable. LFT unremarkable. CT scan reveals small bilateral pleural effusion with atelectasis , mild ascites, changes to liver likely fatty liver with mild splenomegaly. Patient was admitted for further evaluation and treatment When I saw the patient the ER, appeared stable. Patient did not look in any significant distress. Allergies No Known Allergies Allergy (Verified 01/15/16 12:59) Home medications list reviewed: Yes Home Medications: Apixaban [Eliquis *] 2.5 mg PO BID #60 tablet 01/21/16 Atorvastatin Calcium [Lipitor] 1 tab PO BEDTIME #30 tablet 01/21/16 Clindamycin HCl [Cleocin HCl *] 300 mg PO Q6HR #60 cap 01/21/16 Docusate [Colace Cap*] 100 mg PO DAILY #30 cap 01/21/16 Glipizide S.a. [Glucotrol Xl*] 5 mg PO DAILY WITH BREAKFAST #30 tab 01/21/16 Lisinopril [Prinivil*] 10 mg PO DAILY #30 tab 01/21/16 Metformin HCl [Glucophage*] 500 mg PO BIDWM #60 tab 01/21/16 Tramadol HCl [Ultram] 1 tab PO Q6HP PRN #60 tablet 01/21/16 - Past Medical/Surgical History Has patient received pneumonia vaccine in the past: No Diabetic: Yes -: Hypertension -: Hyperlipidemia -: Diabetes mellitus type 2 -: CAD with history of OR -: GERD -: Tobacco abuse -: Diastolic CHF -: Morbid obesity -: History bilateral below-knee amputation -: HERNIA REPAIR -: L and R BKA Psychosocial/ Personal History: Patient lives at home. He reports that he has home health. - Family History Family History: Reviewed- Non-Contributory - Family History Mother -: Diabetes Father -: Heart disease - Social History Smoking Status: Current every day smoker (Patient currently dips) Counseled patient to stop smoking for: less than 10 minutes Smoking therapy provided: Yes Patient receptive to therapy: Yes Alcohol use: No CD- Drugs: No Caffeine use: Yes Place of Residence: Home Review of Systems General: Weakness, As per HPI Eyes: Unremarkable ENT: Unremarkable Respiratory: Shortness of Breath, SOB with Excertion, As per HPI Cardiovascular: Edema, As per HPI Gastrointestinal: Diarrhea, Distention, As per HPI Genitourinary: Unremarkable Musculoskeletal: Pedal edema, As per HPI Integumentary: Unremarkable Neurological: As per HPI Lymphatics: Unremarkable Physical Examination - Vital Signs Temperature: 99.8 F Blood Pressure: 127/81 Pulse: 98 Respirations: 20 Pulse Ox (%): 97 - Physical Exam General: Alert, In no apparent distress, Oriented x3, Cooperative, Disheveled, Other (Patient is not well kept) HEENT: Atraumatic, Normocephalic, PERRLA, Mucous membr. moist/pink Neck: Supple, No Thyromegaly Respiratory: Crackles/rales (Crackles to the bases bilateral) Cardiovascular: Abnormal pulses (Mild sinus tachycardia) Gastrointestinal: Normal bowel sounds, No tenderness (No significant tenderness noted), No masses, No rebound, No guarding, Distended (Abdominal distention noted but soft) Musculoskeletal: No tenderness, No warmth Integumentary: Tenderness/swelling (Mild pitting edema to the lower extremities) Neurological: Normal speech, Normal strength at 5/5 x4 extr, Normal tone, Normal affect - Studies Laboratory Data (last 24 hrs) 12/21/18 22:20: Sodium 138, Potassium 4.4, BUN 24 H, Creatinine 1.65 H, Glucose 143 H, Total Bilirubin 0.7, AST 25, ALT 18, Alkaline Phosphatase 289 H, Lipase 64 L 12/21/18 22:20: WBC 5.7, Hgb 9.7 L, Hct 29.1 L, Plt Count 192 Assessment and Plan - Plan Impression: Shortness of breath secondary to acute on chronic diastolic CHF complicated with bilateral pleural effusion and atelectasis CAD with recent non ST wave OR Abdominal distention with ascites and likely underlying fatty liver with mild splenomegaly Acute on chronic renal disease stage III Chronic diarrhea Anemia likely of chronic disease Diabetes mellitus type 2 Hypertension Hyperlipidemia GERD Tobacco abuse Plan: Shortness of breath secondary to acute on chronic diastolic CHF complicated with bilateral pleural effusion and atelectasis: Patient will be admitted for further evaluation and treatment. Will start IV Lasix 40 mg b.i.d.. Will continue with diuresis. Will teach on fluid restriction. Will continue monitor closely. Cardiology has been consulted. Echocardiogram has been ordered. Will try to obtain recent information from prior hospital at [facility]. Will review and adjust medication appropriately. Will provide incentive spirometer. Will continue to reassess. Recheck chest x-ray tomorrow. Will provide DVT prophylaxis-Lovenox. Will have physical therapy and occupational therapy assess patient. Patient likely will require skilled placement as recommended from prior hospitalization. Likely discharge in the next 2-4 days. Advanced directives address in detail. Patient is DNR. CAD with recent non ST wave OR: Patient with recent hospitalization for OR. Will need to obtain prior hospitalization records from [facility]. Will start aspirin. Will provide DVT prophylaxis. Await further recommendations from cardiology. Abdominal distention with ascites and likely underlying fatty liver with mild splenomegaly: Patient has abdominal distension likely from ascites. CT scan reveals only mild ascites. Will check abdominal ultrasound to confirm. If with significant ascites patient may require radiology assisted paracentesis for further evaluation. Acute on chronic renal disease stage III: Will consult nephrology for further recommendation. Await findings from abdominal ultrasound. Chronic diarrhea: Patient with chronic diarrhea. Will check stool. Will rule out C diff colitis. Will continue to reassess. Anemia likely of chronic disease: Will check iron and B12 studies. Patient may require supplementation. Will monitor closely. Diabetes mellitus type 2: Will check A1c. Will provide insulin sliding scale. Will need to make adjustments to his Medicaid Hypertension: Will start low-dose beta-bradly. Will monitor and adjust appropriately. Hyperlipidemia: Will continue with statin medication GERD: Will start medication Tobacco abuse: Will provide nicotine patch. Will address cessation education. Will check urine drug screen. Discharge Plan: Home Plan to discharge in: Greater than 2 days - Advance Directives Does patient have a Living Will: No Does patient have a Durable POA for Healthcare: No - Code Status/Comfort Care Code Status Assessed: Yes (Patient is DNR) Time Spent Managing Pts Care (In Minutes): 55
--- NOTE | 2018-12-22 11:27 | RAD REPORT ---
EXAM DESCRIPTION: RAD - Abdomen Acute Series - 12/22/2018 1:04 am CLINICAL HISTORY: ABD PAIN COMPARISON: Chest Single View dated 11/06/2018; Abdomen Pelvis Wo Contrast dated 12/22/2018 FINDINGS: Mildly prominent small bowel loops are seen in the central abdomen likely related to under lying ascites. The lungs appear underinflated with patchy opacity in the right lung base which may re present atelectasis. A small right pleural effusion is likely present. The heart is normal in size. N o subdiaphragmatic free air is seen.
[2018-12-22 11:29] LABS: Ferritin 122.2 ng/mL (26-388)
[2018-12-22] MEDS ORDERED: TRAMADOL HCL 50 MG TAB PO PRN (12:11)
--- NOTE | 2018-12-22 13:03 | RAD REPORT ---
EXAM DESCRIPTION: US - Abdomen Exam Complete - 12/22/2018 12:44 pm CLINICAL HISTORY: Abdominal pain. Evaluate ascites, Renal disease COMPARISON: <Comparisons> FINDINGS: The liver demonstrates diffuse heterogenous echotexture. No focal liver lesions or intrahe patic biliary dilatation is seen. The gallbladder demonstrates no gallstones, pericholecystic fluid or gallbladder wall thickening. Co mmon bile duct is normal in caliber measuring 5 millimeters. Both kidneys are normal in size, shape and echotexture. No hydronephrosis, focal lesion of concern or perinephric fluid. The spleen is enlarged measuring 17 cm. The pancreas and aorta are obscured by bowel gas. The visualized aspects of the IVC are grossly normal. Mild ascites noted. IMPRESSION: Heterogenous echotexture of the liver likely indicates cirrhosis or chronic inflammation . Moderate splenomegaly. Mild ascites.
[2018-12-22 14:48] LABS: Urine Appearance CLOUDY; Urine Bilirubin NEGATIVE (NEG); Urine Blood NEGATIVE (NEG); Urine Color YELLOW; Urine Glucose NEGATIVE (NEG); Urine Protein NEGATIVE (NEG); Urine Specific Gravity 1.015 (1.005-1.030)
[2018-12-22 15:05] LABS: Urine Protein/Creatinine Ratio 0.33 ratio (<0.15)
[2018-12-22 15:08] LABS: Barbiturates NEGATIVE (NEGATIVE); Benzodiazepines NEGATIVE (NEGATIVE); Cocaine NEGATIVE (NEGATIVE); METHAMPHETAM NEGATIVE (NEGATIVE); Methadone NEGATIVE (NEGATIVE); Opiates NEGATIVE (NEGATIVE); Phencyclidine NEGATIVE (NEGATIVE); THC Cannibis NEGATIVE (NEGATIVE)
[2018-12-22 15:21] LABS: Urine Microscopic Reflex NO UMIC
--- NOTE | 2018-12-22 15:38 | CON ---
Date of Consultation: 12/22/2018 Additional Consulting Physician: Dr. Tinsley. Reason For Consultation: Elevated BUN and creatinine, fluid management, CHF exacerbation. History Of Present Illness: This is a pleasant 53-year-old gentleman with significant past medical h istory of hypertension, hyperlipidemia, coronary artery disease status post recent ID, non-ST elevati on ID, diabetes complicated with neuropathy and nephropathy, coronary artery disease, CHF, diastolic dysfunction, peripheral vascular disease status post bilateral below-knee amputation. The patient re cently admitted to [facility] with non-ST elevation ID, treated. Apparently, the patient sign ed against medical advice. The patient went home. At home, started having diarrhea, abdominal pain, nausea without any vomiting. For that reason brought to the ER. In the ER, found to have elevated BUN and creatinine. For that reason, we have been consulted. The patient denied taking any nonstero idal. The patient apparently not taking his medication. Denies any fever, any chills. The patient as I mentioned recently admitted to [facility], there had creatinine around 1.4. It was kidne y disease secondary to cardiorenal. Home Medications: Include Eliquis, atorvastatin, clindamycin, docusate, glipizide, lisinopril, metfo rmin, and tramadol. Past Medical History: Includes: 1.Diabetes complicated with neuropathy. 2.Hypertension. 3.Hyperlipidemia. 4.Coronary artery disease complicated with congestive heart failure. 5.Recent non-ST elevation ID. 6.Chronic kidney disease, baseline creatinine 1.4 to 1.5. 7.Peripheral vascular disease status post below-knee amputation, bilateral. Past Surgical History: Include below-knee amputation, bilateral. Family History: Positive for hypertension. Social History: Lives alone. Denies drinking, denies drugs abuse. Active smoker. Review of Systems: Head and Neck: No red eye. No ear pain. GI: Abdominal pain. : No polyuria, no dysuria, no hematuria. ADVERTISING DISPATCH CLERK: Not applicable. Respiratory: Shortness of breath. Cardiovascular: Chest pain. Endocrine: No polydipsia. Skin: No rash. Neuro: Neuropathy. Musculoskeletal: Low back pain. Physical Examination: Vital Signs: When I saw the patient blood pressure 126/80, pulse of 93. Chest: Crackles bilateral base. Heart: S1, S2 regular. Abdomen: Soft. Nontender with ascites. Extremity: Bilateral below-knee amputation. Laboratory Data: WBC 5.7, H and H 9.7/29.1, platelets 192. Sodium of 138, potassium 4.4, bicarb 29, BUN 24, creatinine 1.6, GFR of 44, calcium 9.2. LFT within normal limit. TSH 1.9, T-sat of 13. Fe rritin of 122. Current Medications: The patient on its include: 1.Aspirin. 2.Nicotine. 3.Metoprolol. 4.Lasix 40 b.i.d. 5.Pantoprazole. 6.Insulin. Assessment And Plan: 1.Chronic kidney disease secondary to cardiorenal/diabetes nephropathy, stable around his baseline. We will monitor, continue diuresing the patient. 2.Hypertension, controlled optimal. Continue to utilize blood pressure for more diuresis. 3.Congestive heart failure exacerbation, diastolic. Will follow up with the primary. 4.Ascites. Follow up with the primary. 5.Iron deficiency anemia. We will start the patient on oral iron. Thank you, Dr. Tinsley for allowing us to participate in the care of your patient. DESIREE Voice ID: [id number] Report ID: [id number]
[2018-12-22] MEDS: METOPROLOL TAR 25 MG TAB PO SCH (17:03)
[2018-12-22] MEDS: HYDROCODONE/APAP 7.5/325 MG TAB PO PRN (18:34)
[2018-12-22] MEDS: MORPHINE 2 MG/ML SYR IV PRN (21:53)
[2018-12-22] MEDS: ATORVASTATIN 40 MG TAB PO SCH (21:53)
[2018-12-22] MEDS: FERROUS SULFATE 325 MG TAB PO SCH (21:53)
[2018-12-23] MEDS: MORPHINE 2 MG/ML SYR IV PRN ×2 (05:05→11:05)
[2018-12-23 06:07] LABS: Absolute Lymphocytes (CBC) 0.4 K/uL (0.7-4.9); Absolute Monocytes 0.6 K/uL (0.1-1.3); Absolute Neutrophil 3.1 K/uL (1.8-8.0); Basophils % 0.8 % (0-1.3); Eosinophils % 2.1 % (0-4.4); Hematocrit 23.5 % (39.6-49.0); Lymphocytes % 9.3 % (15.3-44.8); Monocytes % 13.7 % (3.3-12.3); RBC Red Blood Cell Count 2.85 M/uL (4.33-5.43)
[2018-12-23] MEDS: METOPROLOL TAR 25 MG TAB PO SCH ×2 (06:14→17:07)
[2018-12-23 06:27] LABS: Bilirubin Total 0.6 mg/dL (0.2-1.0); Magnesium 1.7 mg/dL (1.8-2.4); Potassium 4.8 mmol/L (3.5-5.1)
[2018-12-23] MEDS: INSULIN -REGULAR HUMAN 50 UNIT/0.5 ML ML SQ SCH ×4 (07:30→21:00)
[2018-12-23] MEDS ORDERED: FUROSEMIDE 20 MG/ 2ML VIAL IV SCH (09:00)
[2018-12-23] MEDS ORDERED: MAGNESIUM SULFATE 1 gm IVPB 1 GM/100 ML BAG IV ONE (09:00)
[2018-12-23] MEDS ORDERED: GLUCAGON 1 MG/VIAL IM PRN (09:29)
[2018-12-23] MEDS ORDERED: D50W 25 GM/50 ML SYRINGE IV PRN (09:29)
--- NOTE | 2018-12-23 09:32 | P.PN ---
Subjective Date of Service: 12/23/18 Primary Care Provider: None Chief Complaint: Shortness of breath Subjective: Doing well, Other (Patient improved.) Physical Examination - Vital Signs Temperature: 99.5 F Blood Pressure: 128/72 Pulse: 88 Respirations: 28 Pulse Ox (%): 97 - Physical Exam General: Alert, In no apparent distress, Oriented x3, Cooperative HEENT: Atraumatic Neck: Supple Respiratory: Clear to auscultation bilaterally, Normal air movement Cardiovascular: Normal pulses, Regular rate/rhythm Gastrointestinal: Normal bowel sounds, Soft and benign, Non-distended, No tenderness, No masses, No rebound, No guarding Integumentary: Tenderness/swelling (Edema to the lower extremities still present but improved) Neurological: Normal speech, Normal strength at 5/5 x4 extr, Normal tone Other Physical/Emotional Findings: Patient with bilateral below-knee amputations - Studies Medications List Reviewed: Yes Assessment & Plan Discharge Plan: Home Plan to discharge in: 24 Hours Physician Review Additional Text: Impression: Shortness of breath secondary to acute on chronic diastolic CHF complicated with bilateral pleural effusion and atelectasis CAD with recent non ST wave OK Abdominal distention with ascites and likely underlying fatty liver with mild splenomegaly Acute on chronic renal disease stage III Chronic diarrhea Anemia likely of chronic disease Diabetes mellitus type 2 Hypertension Hyperlipidemia GERD Tobacco abuse Plan: Shortness of breath secondary to acute on chronic diastolic CHF complicated with bilateral pleural effusion and atelectasis: Patient continues to improve. Will recheck chest x-ray today. Wean off oxygen. Will decrease IV Lasix to 20 mg b.i.d. IV. This can be transition to oral medication tomorrow. Will need to determine if patient will require oxygen at discharge. Continue teach diuresis and fluid restriction. Continue incentive spirometer. Will provide DVT prophylaxis. Patient had echocardiogram and cardiac evaluation at [facility]. Will try to obtain information. Anticipate discharge tomorrow. Will have outreach and education social worker arrange home health and physical therapy with the likelihood of home oxygen. Patient does not desire skilled placement. I will turn the service over to Dr. Pagan tomorrow. I will go over the plan of care with her. CAD with recent non ST wave OK: Patient with recent hospitalization for OK. Will need to obtain prior hospitalization records from [facility]. Continue with aspirin. Will provide DVT prophylaxis. Cardiology feels shortness of breath and edema with mild ascites all related to liver cirrhosis. No further cardiac intervention required. Abdominal distention with ascites and liver cirrhosis and mild splenomegaly: This has significantly improved. CT scan shows mild ascites. No need for paracentesis. Patient will require hepatology evaluation as an outpatient. Hepatitis panel pending. Urine drug screen negative. Continue with diuresis and fluid restriction. Patient reports that he does not drink alcohol. Liver cirrhosis maybe fatty liver related. This can be further addressed by GI. Acute on chronic renal disease stage III likely related to diabetes and liver cirrhosis: Continue with Nephrology recommendations and above. Chronic diarrhea: Patient with chronic diarrhea. Continue to monitor stool. Will rule out C diff colitis. Will provide lactobacillus and medication for diarrhea as needed. Anemia of chronic disease with iron and B12 deficiency: Will continue with iron and B12 supplementation. Monitor hemoglobin. Diabetes mellitus type 2: Will check A1c. Will continue to provide insulin sliding scale. Will need to make adjustments to his Medicaid Hypertension: Continue with low-dose beta-bradly. Will monitor and adjust appropriately. Hyperlipidemia: Will continue with statin medication GERD: Continue with medication Tobacco abuse: Will provide nicotine patch. Will address cessation education. Time Spent Managing Pts Care (In Minutes): 55
[2018-12-23] MEDS ORDERED: LOPERAMIDE HCL 2 MG CAPSULE PO PRN (09:33)
[2018-12-23] MEDS: PANTOPRAZOLE 40MG TABLET PO SCH (09:47)
[2018-12-23] MEDS: ASPIRIN EC 81 MG TAB PO SCH (09:47)
[2018-12-23] MEDS: HEPARIN 5000 UNIT/ML 1 ML VIAL SQ SCH ×2 (09:47→20:16)
[2018-12-23] MEDS: FERROUS SULFATE 325 MG TAB PO SCH ×2 (09:47→20:16)
[2018-12-23] MEDS: NICOTINE 21 MG/PAT TD SCH (09:47)
--- NOTE | 2018-12-23 10:35 | RAD REPORT ---
EXAM DESCRIPTION: Vinh Single View12/23/2018 9:23 am CLINICAL HISTORY: Shortness of breath COMPARISON: December 22 FINDINGS: Small right and minimal left pleural effusions Right basilar atelectasis Normal heart size
[2018-12-23] MEDS: FUROSEMIDE 40 MG/4 ML VIAL IV SCH (17:00)
--- NOTE | 2018-12-23 18:53 | PN ---
Date of Progress Note: 12/23/2018 Subjective: The patient is doing the same. No event. [facility]. Physical Examination: Vital Signs: Blood pressure 112/68, pulse of 87. Chest: Crackles bilateral. Heart: S1, S2 regular. Abdomen: Soft, nontender. Extremities: Trace edema bilateral. Below-knee amputee. Laboratory Data: WBC 4.2, H and H 8.2/25. Sodium 137, potassium 4.8, bicarb 27, BUN 33, creatinine 1.9, calcium 8.8, magnesium 1.7. Current Medications: Include: 1.Aspirin. 2.Ferrous sulfate. 3.Nicotine patch. 4.Atorvastatin. 5.Metoprolol 12.5. 6.Lasix 40 b.i.d. 7.Loperamide. 8.Pantoprazole. 9.Magnesium. 10.Tramadol. Assessment And Plan: 1.Acute kidney injury secondary to cardiorenal, still on the over volume side. I am going to contin ue the patient on diuresis. We will increase Lasix to 40 b.i.d. 2.Hypertension. We will utilize the blood pressure with more diuresis. 3.Congestive heart failure exacerbation. We will try to establish better volume control. 4.Deconditioning. Continue. SHILPA/ALCIRA Voice ID: [id number] Report ID: [id number]
[2018-12-23] MEDS: ATORVASTATIN 40 MG TAB PO SCH (20:16)
[2018-12-23] MEDS: LACTOBACILLUS/ACIDOPHILUS TAB PO SCH (20:16)
[2018-12-24] MEDS: MORPHINE 2 MG/ML SYR IV PRN (04:27)
[2018-12-24] MEDS: METOPROLOL TAR 25 MG TAB PO SCH ×2 (05:16→17:25)
[2018-12-24 05:35] LABS: Absolute Lymphocytes (CBC) 0.4 K/uL (0.7-4.9); Absolute Monocytes 0.5 K/uL (0.1-1.3); Absolute Neutrophil 2.7 K/uL (1.8-8.0); Basophils % 1.1 % (0-1.3); Eosinophils % 1.9 % (0-4.4); Lymphocytes % 9.9 % (15.3-44.8); MPV 5.9 fL (7.6-11.3); Monocytes % 14.3 % (3.3-12.3); RBC Red Blood Cell Count 2.79 M/uL (4.33-5.43)
[2018-12-24 05:43] LABS: Bilirubin Total 0.6 mg/dL (0.2-1.0); Magnesium 1.8 mg/dL (1.8-2.4); Potassium 4.7 mmol/L (3.5-5.1)
[2018-12-24] MEDS ORDERED: MAGNESIUM SULFATE 1 gm IVPB 1 GM/100 ML BAG IV ONE (05:46)
[2018-12-24] MEDS: INSULIN -REGULAR HUMAN 50 UNIT/0.5 ML ML SQ SCH ×4 (07:30→21:00)
[2018-12-24] MEDS: ASPIRIN EC 81 MG TAB PO SCH (09:00)
[2018-12-24] MEDS: FUROSEMIDE 40 MG/4 ML VIAL IV SCH ×2 (10:11→16:42)
[2018-12-24] MEDS: FERROUS SULFATE 325 MG TAB PO SCH ×2 (10:11→22:43)
[2018-12-24] MEDS: HEPARIN 5000 UNIT/ML 1 ML VIAL SQ SCH ×2 (10:11→22:42)
[2018-12-24] MEDS: NICOTINE 21 MG/PAT TD SCH (10:11)
[2018-12-24] MEDS: PANTOPRAZOLE 40MG TABLET PO SCH (10:12)
[2018-12-24] MEDS: LACTOBACILLUS/ACIDOPHILUS TAB PO SCH ×2 (10:12→22:43)
--- NOTE | 2018-12-24 11:55 | ECHO ---
HEIGHT: 5 ft 6 in WEIGHT: 202 lb 1.6 oz DATE OF STUDY: 12/24/[address]: Marco A Tinsley MD 2-DIMENSIONAL: YES M.MODE: YES DOPPLER: YES COLOR FLOW: YES TDS: NO PORTABLE: NO DEFINITY: NO BUBBLE STUDY: NO DIAGNOSIS: CHEST PAIN CARDIAC HISTORY: CATHERIZATION: SURGERY: PROSTHETIC VALVE: PACEMAKER: MEASUREMENTS (cm) DIASTOLIC (NORMALS) SYSTOLIC (NORMALS) IVSd 1.0 (0.6-1.2) LA Diam 3.7 (1.9-4.0) LVEF 65% LVIDd 3.6 (3.5-5.7) LVIDs 2.3 (2.0-3.5) %FS 35% LVPWd 1.0 (0.6-1.2) Ao Diam 2.8 (2.0-3.7) 2 DIMENSIONAL ASSESSMENT: RIGHT ATRIUM: NORMAL LEFT ATRIUM: NORMAL RIGHT VENTRICLE: NORMAL LEFT VENTRICLE: NORMAL TRICUSPID VALVE: NORMAL MITRAL VALVE: NORMAL PULMONIC VALVE: NORMAL AORTIC VALVE: NORMAL PERICARDIAL EFFUSION: NONE AORTIC ROOT: NORMAL LEFT VENTRICULAR WALL MOTION: NORMAL DOPPLER/COLOR FLOW: NORMAL COMMENTS: NORMAL 2D ECHO WITH DOPPLER TECHNOLOGIST: RORY DENG
--- NOTE | 2018-12-24 16:41 | P.PN ---
Subjective Date of Service: 12/24/18 Primary Care Provider: None Chief Complaint: Shortness of breath Patient seen and examined at bedside with RN. Chart reviewed. Case discussed with cardiology at this time. This morning patient complaining of having some shortness of breath. Unable to wean off of oxygen. Patient currently does not have any insurance was not able to arrange for home oxygenation. Will attempt to wean off here in the hospital. Review of Systems 10-point ROS is otherwise unremarkable Physical Examination - Vital Signs Temperature: 97.3 F Blood Pressure: 136/65 Pulse: 84 Respirations: 20 Pulse Ox (%): 97 - Physical Exam General: Alert, Oriented x3, Mild distress HEENT: Atraumatic, PERRLA, EOMI Neck: Supple, JVD not distended Respiratory: Clear to auscultation bilaterally, Normal air movement Cardiovascular: Regular rate/rhythm, Normal S1 S2 Gastrointestinal: Normal bowel sounds, Distended, Ascites Musculoskeletal: No tenderness Integumentary: No rashes Neurological: Normal speech, Normal tone, Normal affect Lymphatics: No axilla or inguinal lymphadenopathy Other Physical/Emotional Findings: Patient with bilateral below-knee amputations - Studies Medications List Reviewed: Yes Assessment And Plan - Current Problems (Diagnosis) (1) Shortness of breath Current Visit: Yes Status: Acute Plan: Shortness of breath most likely multifactorial secondary to acute on chronic CHF exacerbation versus ascites -currently patient on oxygenation. Will attempt to wean off -unable to wean off today -treat underlying condition as well (2) Diastolic dysfunction with acute on chronic heart failure Current Visit: Yes Status: Acute Plan: Patient with acute on chronic diastolic dysfunction with recent NC -currently on IV Lasix 20 b.i.d.. Will continue that here in the hospital. Will change it to p.o. in next 24 hr -echocardiogram today with ejection fraction of 65% with diastolic dysfunction (3) Ascites Current Visit: Yes Status: Acute Plan: Patient with abdominal ascites most likely secondary to liver cirrhosis most likely secondary to fatty liver -abdominal ultrasound along with abdominal CT consistent abdominal ascites and liver cirrhosis -patient however does not require paracentesis at this time -no tenderness noted -will monitor closely here in the hospital -outpatient follow up with police liaison officer and GI Qualifiers: Ascites type: other type Qualified Code(s): R18.8 - Other ascites (4) Acute on chronic kidney failure Current Visit: Yes Status: Acute Plan: Acute on chronic kidney failure most likely secondary to hepatic renal syndrome -BUN and creatinine improving today -nephrology consulted. Appreciated recommendations -will monitor closely Qualifiers: Acute renal failure type: unspecified Chronic kidney disease stage: stage 3 (moderate) Qualified Code(s): N17.9 - Acute kidney failure, unspecified; N18.3 - Chronic kidney disease, stage 3 (moderate) (5) Diabetes mellitus Onset Date: 06/05/15 Current Visit: No Status: Chronic Qualifiers: Diabetes mellitus type: type 2 Diabetes mellitus jail insulin use: without jail use Diabetes mellitus complication status: without complication Qualified Code(s): E11.9 - Type 2 diabetes mellitus without complications (6) Dyslipidemia Onset Date: 06/05/15 Current Visit: No Status: Chronic (7) Hypertension Onset Date: 06/05/15 Current Visit: No Status: Chronic Qualifiers: Hypertension type: essential hypertension Qualified Code(s): I10 - Essential (primary) hypertension (8) Tobacco abuse Current Visit: Yes Status: Acute (9) CAD (coronary artery disease) Current Visit: Yes Status: Chronic Plan: Patient with recent hospitalization for NC. Will need to obtain prior hospitalization records from [facility]. Continue with aspirin. Cardiology feels shortness of breath and edema with mild ascites all related to liver cirrhosis. No further cardiac intervention required. Qualifiers: Coronary Disease-Associated Artery/Lesion type: [place] artery [place] vs. transplanted heart: [place] heart Associated angina: without angina Qualified Code(s): I25.10 - Atherosclerotic heart disease of [place] coronary artery without angina pectoris - Plan Patient currently pending clinical improvement at this time. Will attempt to wean off from oxygen. Continue with IV Lasix at this time. Discharge Plan: Home Plan to discharge in: Greater than 2 days - Code Status/Comfort Care Code Status Assessed: Yes Critical Care: No
[2018-12-24] MEDS: HYDROCODONE/APAP 7.5/325 MG TAB PO PRN ×2 (16:42→22:43)
[2018-12-24] MEDS: ATORVASTATIN 40 MG TAB PO SCH (22:44)
[2018-12-25] MEDS: MORPHINE 2 MG/ML SYR IV PRN ×2 (00:20→05:42)
--- NOTE | 2018-12-25 03:43 | PN ---
Date of Progress Note: 12/24/2018 Chief Complaint: Acute kidney injury, moderately severe nonoliguric, associated with acute tubular n ecrosis and diuretic effect. The patient was found to have prerenal azotemia. Lasix dose was decrea sed according to the diuretic effect. The patient has hypertension. Blood pressure is stabilizing. The patient was found to have congesti ve heart failure exacerbation with acute on chronic diastolic dysfunction. The patient is responding to diuretics. Review of Systems: Denies PND, orthopnea. Physical Examination: Lungs: Few crackles at bases. Heart: S1, S2. Abdomen: Soft, benign. Extremities: Slight edema. Below-knee amputee. Laboratory Data: Potassium 4.8, sodium 137, BUN 33, creatinine 1.9, magnesium 1.7. Impression And Plan: 1.Acute on chronic kidney injury, hypertensive heart and kidney disease, diastolic dysfunction, lisa estive heart failure. Continue low-sodium diet, p.o. fluid restriction. Lasix dose was reduced to 4 0 mg twice a day. Monitor electrolytes. Adjust replacement with potassium and magnesium accordingly . 2.Borderline hypomagnesemia, monitor magnesium and continue replacement. 3.Congestive heart failure. Continue beta-bradly. MARCIE inhibitor is on hold due to acute kidney injury. Monitor renal function and potassium level. EB/MODL Voice ID: [id number] Report ID: [id number]
[2018-12-25 04:12] LABS: Absolute Lymphocytes (CBC) 0.4 K/uL (0.7-4.9); Absolute Monocytes 0.6 K/uL (0.1-1.3); Absolute Neutrophil 2.3 K/uL (1.8-8.0); Basophils % 0.6 % (0-1.3); Eosinophils % 1.9 % (0-4.4); Hematocrit 23.5 % (39.6-49.0); Lymphocytes % 11.5 % (15.3-44.8); MPV 6.2 fL (7.6-11.3); Monocytes % 17.3 % (3.3-12.3); RBC Red Blood Cell Count 2.87 M/uL (4.33-5.43)
[2018-12-25 04:30] LABS: Albumin 1.9 g/dL (3.4-5.0); Bilirubin Total 0.5 mg/dL (0.2-1.0); Magnesium 1.8 mg/dL (1.8-2.4); Potassium 4.7 mmol/L (3.5-5.1); Protein, Total 6.1 g/dL (6.4-8.2)
[2018-12-25] MEDS: METOPROLOL TAR 25 MG TAB PO SCH ×2 (05:40→17:09)
[2018-12-25] MEDS ORDERED: MAGNESIUM SULFATE 1 gm IVPB 1 GM/100 ML BAG IV ONE (06:00)
[2018-12-25] MEDS: INSULIN -REGULAR HUMAN 50 UNIT/0.5 ML ML SQ SCH ×4 (07:30→20:53)
[2018-12-25] MEDS: NICOTINE 21 MG/PAT TD SCH (09:14)
[2018-12-25] MEDS: FUROSEMIDE 40 MG/4 ML VIAL IV SCH (09:15)
[2018-12-25] MEDS: PANTOPRAZOLE 40MG TABLET PO SCH (09:15)
[2018-12-25] MEDS: LACTOBACILLUS/ACIDOPHILUS TAB PO SCH ×2 (09:15→20:52)
[2018-12-25] MEDS: HEPARIN 5000 UNIT/ML 1 ML VIAL SQ SCH ×2 (09:15→20:52)
[2018-12-25] MEDS: ASPIRIN EC 81 MG TAB PO SCH (09:15)
[2018-12-25] MEDS: FERROUS SULFATE 325 MG TAB PO SCH ×2 (09:15→20:52)
[2018-12-25] MEDS ORDERED: ALBUMIN HUMAN 25% 100 ML IV ONE (09:33)
[2018-12-25] MEDS: HYDROCODONE/APAP 7.5/325 MG TAB PO PRN ×2 (13:16→20:52)
[2018-12-25] MEDS ORDERED: NA CHLORIDE 0.9% 250 ML ONE (14:18)
--- NOTE | 2018-12-25 17:03 | P.PN ---
Subjective Date of Service: 12/25/18 Primary Care Provider: None Chief Complaint: Shortness of breath Patient seen and examined at bedside with RN. Chart reviewed. Pt is very angry about everything in the hospital and states that he does not know what he can do here. Unable to wean off of oxygen today as well. Patient currently does not have any insurance was not able to arrange for home oxygenation. Will attempt to wean off here in the hospital. Review of Systems 10-point ROS is otherwise unremarkable Physical Examination - Vital Signs Temperature: 98.3 F Blood Pressure: 119/76 Pulse: 85 Respirations: 19 Pulse Ox (%): 92 - Physical Exam General: Alert, In no apparent distress HEENT: Atraumatic, PERRLA, EOMI Neck: Supple, JVD not distended Respiratory: Clear to auscultation bilaterally, Normal air movement Cardiovascular: Regular rate/rhythm, Normal S1 S2 Gastrointestinal: Normal bowel sounds, Ascites Musculoskeletal: Other (BL BKA) Integumentary: No rashes Lymphatics: No axilla or inguinal lymphadenopathy Other Physical/Emotional Findings: Patient with bilateral below-knee amputations - Studies Medications List Reviewed: Yes Assessment And Plan - Current Problems (Diagnosis) (1) Shortness of breath Current Visit: Yes Status: Acute Plan: Shortness of breath most likely multifactorial secondary to acute on chronic CHF exacerbation versus ascites vs anemia -currently patient on oxygenation. Will attempt to wean off -unable to wean off today -Will transfuse 1 units of PRBC as well -treat underlying condition as well (2) Diastolic dysfunction with acute on chronic heart failure Current Visit: Yes Status: Acute Plan: Patient with acute on chronic diastolic dysfunction with recent OK -Switched to PO lasix now. Doing well overall from CHF standpoint -echocardiogram today with ejection fraction of 65% with diastolic dysfunction (3) Ascites Current Visit: Yes Status: Acute Plan: Patient with abdominal ascites most likely secondary to liver cirrhosis most likely secondary to fatty liver -Albumin of 1.9. Will transfuse albumin x 1 today -abdominal ultrasound along with abdominal CT consistent abdominal ascites and liver cirrhosis -patient however does not require paracentesis at this time -no tenderness noted -will monitor closely here in the hospital -outpatient follow up with founder and chief executive officer and GI Qualifiers: Ascites type: other type Qualified Code(s): R18.8 - Other ascites (4) Acute on chronic kidney failure Current Visit: Yes Status: Acute Plan: Acute on chronic kidney failure most likely secondary to hepato renal syndrome -BUN and creatinine worse today. -Albumin x 1 and will give PRBC x 1 as well -nephrology consulted. Appreciated recommendations -will monitor closely Qualifiers: Acute renal failure type: unspecified Chronic kidney disease stage: stage 3 (moderate) Qualified Code(s): N17.9 - Acute kidney failure, unspecified; N18.3 - Chronic kidney disease, stage 3 (moderate) (5) Diabetes mellitus Onset Date: 06/05/15 Current Visit: No Status: Chronic Qualifiers: Diabetes mellitus type: type 2 Diabetes mellitus media planner / buyer insulin use: without media planner / buyer use Diabetes mellitus complication status: without complication Qualified Code(s): E11.9 - Type 2 diabetes mellitus without complications (6) Dyslipidemia Onset Date: 06/05/15 Current Visit: No Status: Chronic (7) Hypertension Onset Date: 06/05/15 Current Visit: No Status: Chronic Qualifiers: Hypertension type: essential hypertension Qualified Code(s): I10 - Essential (primary) hypertension (8) Tobacco abuse Current Visit: Yes Status: Chronic (9) CAD (coronary artery disease) Current Visit: Yes Status: Chronic Plan: Patient with recent hospitalization for OK. Will need to obtain prior hospitalization records from [facility]. Continue with aspirin. Cardiology feels shortness of breath and edema with mild ascites all related to liver cirrhosis. No further cardiac intervention required. Qualifiers: Coronary Disease-Associated Artery/Lesion type: [place] artery [place] vs. transplanted heart: [place] heart Associated angina: without angina Qualified Code(s): I25.10 - Atherosclerotic heart disease of [place] coronary artery without angina pectoris - Plan Patient currently pending clinical improvement at this time. Will attempt to wean off from oxygen. Continue with po Lasix at this time. Transfuse PRBC and Albumin Discharge Plan: Home Plan to discharge in: 48 Hours - Code Status/Comfort Care Code Status Assessed: Yes Critical Care: No
[2018-12-25] MEDS: FUROSEMIDE 20 MG TABLET PO SCH (17:08)
[2018-12-25] MEDS: ATORVASTATIN 40 MG TAB PO SCH (20:52)
[2018-12-26 00:42] VITALS: TEMP 97.9
--- NOTE | 2018-12-26 03:07 | PN ---
Date of Progress Note: 12/25/2018 Chief Complaint: Acute kidney injury, moderately severe, nonoliguric, associated with acute tubular necrosis and diuretic effect. The patient was found to have prerenal azotemia. Diuretic dose was re duced. Hypertension; blood pressure is stabilizing. The patient was found to have congestive heart failure exacerbation with acute on chronic diastolic dysfunction. Review of Systems: The patient denies fever or chills. Physical Examination: Lungs: Few crackles at bases. Heart: S1, S2. Abdomen: Soft, benign. Extremities: Slight edema. Laboratory Data: Sodium 141, potassium 4.7, chloride 106, CO2 28, BUN 45, creatinine 2.24, glucose 1 24, calcium 9.2, magnesium 1.8. Impression And Plan: 1.Acute kidney injury. Renal function is fluctuating. Diuretic dose was adjusted. Monitor urine o utput and fluid balance. The patient has congestive heart failure with fluid overload. Continue pan atment with diuretics and monitor electrolytes. Adjust replacement with potassium and magnesium as n eeded. 2.Hypertension. Blood pressure is improving. Adjust medication. Continue low-sodium diet. 3.Anemia. The patient may need blood transfusion. 4.Borderline hypomagnesemia. Magnesium replacement was ordered. 5.Congestive heart failure. Continue beta-bradly, MARCIE inhibitor on hold because of acute kidney in [place]. MAURA/ALCIRA Voice ID: [id number] Report ID: [id number]
[2018-12-26] MEDS: HYDROCODONE/APAP 7.5/325 MG TAB PO PRN ×2 (04:10→10:33)
[2018-12-26 05:30] VITALS: BMI 32.8
[2018-12-26] MEDS: METOPROLOL TAR 25 MG TAB PO SCH (05:30)
[2018-12-26] MEDS: INSULIN -REGULAR HUMAN 50 UNIT/0.5 ML ML SQ SCH (07:30)
[2018-12-26 08:39] LABS: Absolute Lymphocytes (CBC) 0.3 K/uL (0.7-4.9); Absolute Monocytes 0.6 K/uL (0.1-1.3); Absolute Neutrophil 2.4 K/uL (1.8-8.0); Basophils % 0.7 % (0-1.3); Eosinophils % 1.5 % (0-4.4); Hematocrit 26.4 % (39.6-49.0); Lymphocytes % 9.8 % (15.3-44.8); MPV 6.2 fL (7.6-11.3); Monocytes % 17.8 % (3.3-12.3); RBC Red Blood Cell Count 3.21 M/uL (4.33-5.43)
[2018-12-26 08:40] VITALS: O2SAT 96
[2018-12-26 08:41] LABS: Magnesium 1.8 mg/dL (1.8-2.4); Potassium 4.6 mmol/L (3.5-5.1)
[2018-12-26] MEDS: PANTOPRAZOLE 40MG TABLET PO SCH (09:00)
[2018-12-26] MEDS: FERROUS SULFATE 325 MG TAB PO SCH (09:26)
[2018-12-26] MEDS: LACTOBACILLUS/ACIDOPHILUS TAB PO SCH (09:26)
[2018-12-26] MEDS: ASPIRIN EC 81 MG TAB PO SCH (09:26)
[2018-12-26] MEDS: FUROSEMIDE 20 MG TABLET PO SCH (09:26)
[2018-12-26] MEDS: NICOTINE 21 MG/PAT TD SCH (09:27)
[2018-12-26] MEDS: HEPARIN 5000 UNIT/ML 1 ML VIAL SQ SCH (09:27)
[2018-12-26 09:29] VITALS: BP 118/79
[2018-12-26] MEDS ORDERED: MAGNESIUM SULFATE 1 gm IVPB 1 GM/100 ML BAG IV ONE (09:32)
[2018-12-26 12:31] LABS: HBsAG Nonreactive (Nonreactive); Hepatitis A IgM Antibody Nonreactive
--- NOTE | 2018-12-26 14:34 | P.DS ---
Admission Date: 12/22/18 Discharge Date: 12/26/18 Primary Care Provider: Prisca Disposition: ROUTINE DISCHARGE Discharge Condition: FAIR Reason for Admission: Shortness of breath - Problems (1) Shortness of breath Status: Acute (2) Diastolic dysfunction with acute on chronic heart failure Status: Acute (3) Ascites Status: Acute Qualifiers: Ascites type: other type Qualified Code(s): R18.8 - Other ascites (4) Acute on chronic kidney failure Status: Acute Qualifiers: Acute renal failure type: unspecified Chronic kidney disease stage: stage 3 (moderate) Qualified Code(s): N17.9 - Acute kidney failure, unspecified; N18.3 - Chronic kidney disease, stage 3 (moderate) (5) Diabetes mellitus Onset Date: 06/05/15 Status: Chronic Qualifiers: Diabetes mellitus type: type 2 Diabetes mellitus jail insulin use: without jail use Diabetes mellitus complication status: without complication Qualified Code(s): E11.9 - Type 2 diabetes mellitus without complications (6) Dyslipidemia Onset Date: 06/05/15 Status: Chronic (7) Hypertension Onset Date: 06/05/15 Status: Chronic Qualifiers: Hypertension type: essential hypertension Qualified Code(s): I10 - Essential (primary) hypertension (8) Tobacco abuse Status: Chronic (9) CAD (coronary artery disease) Status: Chronic Qualifiers: Coronary Disease-Associated Artery/Lesion type: [place] artery [place] vs. transplanted heart: [place] heart Associated angina: without angina Qualified Code(s): I25.10 - Atherosclerotic heart disease of [place] coronary artery without angina pectoris Brief History of Present Illness: 53-year-old male presented to the emergency room with shortness of breath. Patient reports that he was seen last week at [facility]. He was found to have non ST wave MO and acute renal injury. Patient was hospitalized. Patient was to go to a skilled facility but the patient left AMA. Patient with underlying history of diabetes, diastolic CHF, CAD, GERD, tobacco abuse and obesity. Patient also has bilateral below-knee amputations. Patient further reports chronic history of diarrhea. He does not have any significant abdominal pain. He has noted some abdominal enlargement. He denies any significant chest pain at this time. No fever chills noted. In the ER patient evaluated. Blood pressure stable. Room-air saturations within normal range. Patient was slightly tachycardic. On lab white count 5.7 , hemoglobin 9.7. Platelet count 182. Sodium 138, potassium 4.4, BUN of 24, creatinine 1.6 with a GFR 44. Glucose 143. Lipase unremarkable. LFT unremarkable. CT scan reveals small bilateral pleural effusion with atelectasis , mild ascites, changes to liver likely fatty liver with mild splenomegaly. Patient was admitted for further evaluation and treatment When I saw the patient the ER, appeared stable. Patient did not look in any significant distress. Hospital Course: Overall during the hospital stay patient remained stable Patient was initially admitted to the hospital for shortness of breath most likely secondary to ascites and acute kidney injury. Nephrology, cardiology was consulted here in the hospital. Patient does have history of CHF initially her shortness of breath was thought secondary to CHF exacerbation. Patient was kept on IV Lasix here in the hospital. Patient had improvement in his symptoms however his kidney function was getting worse thus Lasix was called. Patient's kidney injury did improve after Lasix was held and his home medication of Arb was stopped as well. Patient was monitored closely here in the hospital. Patient also had ascites and had ultrasound done here in the hospital to evaluate for need for paracentesis. Patient did not need paracentesis here in the hospital. Patient was given albumin x1 here in the hospital along with 1 unit of PRBC for anemia of chronic disease. Patient had marked improvement in his symptoms. At that time patient's oxygen was weaned off and patient was doing fine on room air. At that time patient was then discharged home under stable condition was asked to continue taking Lasix orally along with his other medication however to stop taking his Arb at home. Patient was also asked to follow up with primary care provider or establish care with a local primary care provider. Patient demonstrate understanding and thus was discharged home under stable condition. Vital Signs/Physical Exam: Temp Pulse Resp BP Pulse Ox 97.9 F 77 16 118/79 87 L 12/26/18 04:00 12/26/18 09:26 12/26/18 04:00 12/26/18 09:26 12/26/18 04:00 General: Alert, In no apparent distress HEENT: Atraumatic, PERRLA, EOMI Neck: Supple, JVD not distended Respiratory: Clear to auscultation bilaterally, Normal air movement Cardiovascular: Regular rate/rhythm, Normal S1 S2 Gastrointestinal: Normal bowel sounds, No tenderness Musculoskeletal: Other (BL BKA) Integumentary: No rashes Neurological: Normal speech, Normal tone, Normal affect Lymphatics: No axilla or inguinal lymphadenopathy Other Physical/Emotional Findings: Patient with bilateral below-knee amputations Laboratory Data at Discharge: WBC 3.5 K/uL (4.3-10.9) L 12/26/18 08:02 Hgb 8.7 g/dL (13.6-17.9) L 12/26/18 08:02 Hct 26.4 % (39.6-49.0) L 12/26/18 08:02 Plt Count 117 K/uL (152-406) L 12/26/18 08:02 Sodium 139 mmol/L (136-145) 12/26/18 08:02 Potassium 4.6 mmol/L (3.5-5.1) 12/26/18 08:02 BUN 47 mg/dL (7-18) H 12/26/18 08:02 Creatinine 1.85 mg/dL (0.55-1.3) H 12/26/18 08:02 Glucose 112 mg/dL (74-106) H 12/26/18 08:02 Uric Acid 6.3 mg/dL (3.5-7.2) 12/22/18 09:37 Magnesium 1.8 mg/dL (1.8-2.4) 12/26/18 08:02 Total Bilirubin 0.5 mg/dL (0.2-1.0) 12/25/18 03:53 AST 21 U/L (15-37) 12/25/18 03:53 ALT 15 U/L (12-78) 12/25/18 03:53 Alkaline Phosphatase 278 U/L (45-117) H 12/25/18 03:53 Triglycerides 64 mg/dL (<150) 12/22/18 09:37 Cholesterol 117 mg/dL (<200) 12/22/18 09:37 HDL Cholesterol 42 mg/dL (40-60) 12/22/18 09:37 Cholesterol/HDL Ratio 2.79 12/22/18 09:37 Lipase 64 U/L (73-393) L 12/21/18 22:20 Home Medications: Apixaban [Eliquis *] 2.5 mg PO BID #60 tablet 06/30/16 Atorvastatin Calcium [Lipitor] 1 tab PO BEDTIME #30 tablet 01/21/16 Docusate [Colace Cap*] 100 mg PO DAILY #30 cap 01/21/16 Glipizide S.a. [Glucotrol Xl*] 5 mg PO DAILY WITH BREAKFAST #30 tab 01/21/16 Metformin HCl [Glucophage*] 500 mg PO BIDWM #60 tab 01/21/16 Tramadol HCl [Ultram] 1 tab PO Q6HP PRN #60 tablet 01/21/16 Furosemide [Lasix*] 20 mg PO BIDL #60 tab 12/26/18 Metoprolol Tartrate [Lopressor*] 12.5 mg PO BID 6AM 6PM #60 tab 12/26/18 New Medications: Furosemide [Lasix*] 20 mg PO BIDL #60 tab Metoprolol Tartrate [Lopressor*] 12.5 mg PO BID 6AM 6PM #60 tab Diet: Regular Activity: Ad kya Followup: Deedee Jiménez MD [ACTIVE - CAN ADMIT] - (call to schedule appointment) Demond Forrester MD [ACTIVE - CAN ADMIT] - (call to schedule appointment)
--- NOTE | 2018-12-26 16:20 | PN ---
Date of Progress Note: 12/26/2018 Subjective: The patient poor compliance. The patient was admitted with CHF exacerbation. Physical Examination: Vital Signs: Blood pressure 118/79, pulse of 77. The patient had urine output of 2400. Chest: Crackles on the base. Heart: S1 and S2. Systolic murmur. Abdomen: Soft and nontender. Extremities: Bilateral below-knee amputee. Laboratory Data: WBC 3.5, H and H 8.7/26.4, platelet 117. Sodium 139, potassium 4.6, bicarb 29, BUN 47, creatinine 1.8, calcium 9.4, magnesium 1.8. Current Medications: The patient on its include: 1.Aspirin. 2.Nicotine. 3.Heparin. 4.Metoprolol 12.5. 5.Atorvastatin. 6.Lasix 20 b.i.d. 7.Loperamide. 8.Pantoprazole. 9.Insulin. Assessment And Plan: 1.Acute kidney injury on chronic kidney disease secondary to cardiorenal. [facility] Continue current diuresis. 2.Hypertension, controlled, optimal. Continue utilize blood pressure for diuresis. 3.Deconditioning. Continue PT and OT. 4.Coronary artery disease non-ST elevation myocardial infarction. Follow up with the primary. 5.Coronary artery disease, congestive heart failure. We will try to establish better volume control with the diuresis. SHILPA/ALCIRA Voice ID: [id number] Report ID: [id number]
[2018-12-27] MEDS ORDERED: FUROSEMIDE 40 MG TABLET PO SCH (09:00)
[2018-12-27 15:21] LABS: HIV AG/AB 4TH GEN Non-reactive (Non-reactive)
== END 2018-12-26 11:42 | disposition home or self-care (01) | DRG 280 ==
LOC: ER 22:07 → ERHOLD 12-22 06:28 → INTOOBSV 12-22 06:28 → OBSVTOIN 12-22 06:28 → 4TH 12-22 08:02 → OBSVTOIN 12-22 10:54
PROVIDERS: ADMIT Internal Medicine; ATTEND Family Medicine
PROC: 30233N1 Transfusion of Nonautologous Red Blood Cells into Peripheral Vein, Percutaneous Approach (ICD-10-PCS; principal; 2018-12-25)
DX: I13.0 Hypertensive heart and chronic kidney disease with heart failure and stage 1 through stage 4 chronic kidney disease, or unspecified chronic kidney disease (principal); I50.33 Acute on chronic diastolic (congestive) heart failure; I21.4 Non-ST elevation (NSTEMI) myocardial infarction; N17.9 Acute kidney failure, unspecified; J98.11 Atelectasis; R18.8 Other ascites; E11.22 Type 2 diabetes mellitus with diabetic chronic kidney disease; E11.40 Type 2 diabetes mellitus with diabetic neuropathy, unspecified; E11.51 Type 2 diabetes mellitus with diabetic peripheral angiopathy without gangrene; E11.21 Type 2 diabetes mellitus with diabetic nephropathy; N18.3 Chronic kidney disease, stage 3 (moderate); Z66 Do not resuscitate; I25.10 Atherosclerotic heart disease of native coronary artery without angina pectoris; K76.0 Fatty (change of) liver, not elsewhere classified; R16.1 Splenomegaly, not elsewhere classified; K52.9 Noninfective gastroenteritis and colitis, unspecified; D63.8 Anemia in other chronic diseases classified elsewhere; D50.9 Iron deficiency anemia, unspecified; E78.5 Hyperlipidemia, unspecified; K21.9 Gastro-esophageal reflux disease without esophagitis; F17.210 Nicotine dependence, cigarettes, uncomplicated; E83.42 Hypomagnesemia; Z79.01 Long term (current) use of anticoagulants; Z79.84 Long term (current) use of oral hypoglycemic drugs; Z89.512 Acquired absence of left leg below knee; Z89.511 Acquired absence of right leg below knee
CPT/HCPCS: 36415; 36430; 71045; 74022; 74176; 76700; 80048; 80053; 80061; 80074; 80307; 80320; 81003; 82550; 82570; 82607; 82728; 82962; 83036; 83540; 83605; 83690; 83735; 84156; 84439; 84443; 84466; 84550; 85014; 85018; 85025; 86850; 86900; 86901; 86922; 87040; 87045; 87046; 87177; 87209; 87389; 87493; 93005; 93306; 97162; 97530; 99285; C9113; G0378; J0696; J1644; J1940; J2270; J2405; J3475; P9016; P9047

== ENCOUNTER 2019-01-04 11:43 | Observation (INO) | payer SELFPAY ==
[2019-01-04] MEDS ORDERED: ONDANSETRON 4 MG/2 ML VIAL ONE (12:16)
[2019-01-04] MEDS ORDERED: MORPHINE 4 MG/ML SYR ONE (12:16)
[2019-01-04] MEDS ORDERED: NA CHLORIDE 0.9% 500 ML ONE (12:16)
[2019-01-04 12:27] LABS: Absolute Lymphocytes (CBC) 0.4 K/uL (0.7-4.9); Basophils % 0.3 % (0-1.3); Lymphocytes % 8.4 % (15.3-44.8); MPV 6.1 fL (7.6-11.3); RBC Red Blood Cell Count 3.78 M/uL (4.33-5.43)
[2019-01-04] MEDS ORDERED: FENTANYL CITR 100 MCG/2 ML ONE (12:31)
[2019-01-04] MEDS ORDERED: FAMOTIDINE 20 MG/2 ML VIAL IV ONE (12:31)
[2019-01-04 12:46] LABS: Albumin 2.2 g/dL (3.4-5.0); Bilirubin Direct 0.3 mg/dL (0-0.2); Bilirubin Total 0.8 mg/dL (0.2-1.0); Magnesium 1.7 mg/dL (1.8-2.4); Potassium 4.2 mmol/L (3.5-5.1); Protein, Total 6.3 g/dL (6.4-8.2)
--- NOTE | 2019-01-04 13:40 | RAD REPORT ---
EXAM DESCRIPTION: RAD - Chest Single View - 01/04/2019 1:11 pm CLINICAL HISTORY: Abdominal distention, shortness of breath COMPARISON: December 23, 2018 TECHNIQUE: AP portable chest image was obtained 1303 hours . FINDINGS: Lung volumes are very low accentuating heart, vasculature and lung markings. Substantial c hange from December 23 is not suspected. No peripheral mass or consolidation seen. Heart size is stable. Vasculature is not abnormal for body habitus and very shallow inspiration exam. No measurable pleura l effusion and no pneumothorax. No acute bony abnormality seen. No acute aortic findings suspected. IMPRESSION: Exam is limited by very shallow inspiratory effort. Chest is not substantially different from December 23. Early or mild interstitial edema or infiltrate co uld be masked.
--- NOTE | 2019-01-04 15:01 | RAD REPORT ---
EXAM DESCRIPTION: CT - Abdomen Pelvis Wo Contrast - 01/04/2019 2:35 pm CLINICAL HISTORY: Abdominal pain, abdominal distention COMPARISON: CT December 22 TECHNIQUE: Axial [address] imaging of the abdomen and pelvis was performed without IV contrast. No IV contrast was given because of allergy, abnormal renal function, patient refusal or physician re quest. No oral contrast. All CT scans are performed using dose optimization technique as appropriate and may include automated exposure control or mA/KV adjustment according to patient size. FINDINGS: Right greater than left bilateral pleural effusions are present similar to December 22 imaging. No new or progressive pericardial thickening or effusion. Right base atelectasis is present. No focal liver lesions seen on noncontrast imaging. Nodularity of the liver capsule is identified. Li sudeep assessment is limited in the absence of IV contrast and limited due to artifact of the patient's arms across the abdomen. Splenomegaly is present 216 cm. No focal splenic lesions seen. No change fro m comparison. No pancreatic or peripancreatic acute finding. Gallbladder and biliary tree are also without suspicious finding. No hydronephrosis or suspicious renal mass. No significant adrenal finding. Isodense renal masses an d pyelonephritis cannot be excluded in the absence of IV contrast. The urinary bladder is without sig nificant finding. No dilated bowel loops or bowel wall thickening. No free air or pneumatosis. No hernia, mass or bulky lymphadenopathy. Moderate volume of ascites is present. When comparing with December 22, volume of intraperitoneal fluid is not substantially different. Fluid retention in the subcutaneous fatty tissues has increased from . No suspicious bony findings. Dense arterial tree calcifications are present. IMPRESSION: Moderate volume of ascites not substantially different from the December 22 examination. Subcutaneous fluid retention has increased since December 22. Right greater than left small pleural effusions similar to comparison. No acute intraperitoneal process seen. Assessment is limited in the absence of IV contrast. Full assessment is limited is the absence of IV contrast.
[2019-01-04] MEDS ORDERED: IPRATROPIUM BROM 0.5MG/2.5ML ONE (16:12)
[2019-01-04] MEDS ORDERED: ALBUTEROL 2.5 MG/3 ML NEB SOL ONE (16:12)
[2019-01-04] MEDS ORDERED: FUROSEMIDE 40 MG/4 ML VIAL ONE (16:34)
--- NOTE | 2019-01-04 16:39 | EDPHYS ---
Physician Documentation [facility] Name: Savage Szymanski Age: 53 yrs Sex: Male : 1965 Arrival Date: 01/04/2019 Time: 11:49 Bed 20 Private MD: ED Physician Cesar Woodall HPI: 01/04 12:05 This 53 yrs old Male presents to ER via EMS with complaints of Abdominal Pain.cp 12:05 The patient presents with abdominal pain that is diffuse. cp 12:05 Onset: The symptoms/episode began/occurred gradually, and became worse today. cp Associated signs and symptoms: Pertinent positives: constipation, shortness of breath, Pertinent negatives: chest pain, fever, testicular pain, vomiting. Historical: - Allergies: 11:52 No Known Allergies; em - Home Meds: 11:52 Metformin Oral [Active]; Metoprolol Tartrate Oral [Active]; em - PMHx: 11:52 CHF; Diabetes - IDDM; GERD; Hypertension; legally blind; em - PSHx: 11:52 juan. below the knee amputations; em - Immunization history:: Adult Immunizations up to date. - Social history:: Smoking status: Patient uses tobacco products, chewing tobacco. - Ebola Screening: : Patient negative for fever greater than or equal to 101.5 degrees Fahrenheit, and additional compatible Ebola Virus Disease symptoms Patient denies exposure to infectious person Patient denies travel to an Ebola-affected area in the 21 days before illness onset No symptoms or risks identified at this time. ROS: 12:10 Constitutional: Negative for body aches, chills, fever, poor PO intake. cp 12:10 Eyes: Negative for injury, pain, redness, and discharge. cp 12:10 Cardiovascular: Negative for chest pain, palpitations. 12:10 Respiratory: Positive for cough, shortness of breath. 12:10 Abdomen/GI: Positive for abdominal pain, constipation, abdominal distension. 12:10 Skin: Negative for cellulitis, rash. 12:10 Neuro: Negative for altered mental status, headache, weakness. 12:10 All other systems are negative. Exam: 12:15 Constitutional: The patient appears in no acute distress, alert, awake, cp non-diaphoretic, non-toxic, well developed, well nourished, uncomfortable. 12:15 Head/Face: Normocephalic, atraumatic. Eyes: Pupils equal round and reactive to light, cp extra-ocular motions intact. Lids and lashes normal. Conjunctiva and sclera are non-icteric and not injected. Cornea within normal limits. Periorbital areas with no swelling, redness, or edema. ENT: Nares patent. No nasal discharge, no septal abnormalities noted. Tympanic membranes are normal and external auditory canals are clear. Oropharynx with no redness, swelling, or masses, exudates, or evidence of obstruction, uvula midline. Mucous membranes moist. Chest/axilla: Normal chest wall appearance and motion. Nontender with no deformity. No lesions are appreciated. 12:15 Cardiovascular: Rate: tachycardic, Rhythm: regular. 12:15 Respiratory: the patient does not display signs of respiratory distress, Respirations: normal, Breath sounds: are clear throughout, no decreased breath sounds, no stridor, no wheezing. 12:15 Abdomen/GI: Inspection: distension, that is moderate, Bowel sounds: active, all quadrants, Palpation: soft, in all quadrants, moderate abdominal tenderness, in all quadrants, rebound tenderness, is not appreciated, involuntary guarding, is not appreciated. 12:15 Neuro: Orientation: to person, place \T\ time. Mentation: is normal. 18:10 ECG was reviewed by the Attending Physician. cp Vital Signs: 11:52 BP 129 / 90; Pulse 99; Resp 22; Temp 98.0(O); Pulse Ox 99% on 2 lpm NC; Weight 81.65 em kg; Pain 8/10; 13:00 BP 130 / 86; Pulse 86; Resp 20; Pulse Ox 100% on 2 lpm NC; em 14:00 BP 143 / 86; Pulse 91; Resp 18; Pulse Ox 99% on 2 lpm NC; em 15:02 BP 150 / 90; Pulse 92; Resp 20; Temp 97.7(TE); Pulse Ox 95% on 2 lpm NC; em 15:55 BP 132 / 91; Pulse 93; Resp 20; Temp 98.3(TE); Pulse Ox 100% on 2 lpm NC; mh5 17:23 BP 137 / 84; Pulse 115; Resp 20; Temp 98.6(TE); Pulse Ox 88% on R/A; mh5 17:39 BP 133 / 83; Pulse 115; Resp 22; Temp 98.1(O); Pulse Ox 98% on 2 lpm NC; em 18:39 BP 127 / 89; Pulse 114; Resp 20; Pulse Ox 100% on R/A; Pain 7/10; em 19:35 BP 115 / 88; Pulse 114; Resp 18; Temp 97.9(O); Pulse Ox 100% on 2 lpm NC; Pain 7/10; ed1 MDM: 11:49 Patient medically screened. cp 16:37 Patient medically screened. 01/04 12:03 Order name: Basic Metabolic Panel 01/04 12:03 Order name: CBC with Diff 01/04 12:03 Order name: Creatinine for Radiology 01/04 12:03 Order name: Hepatic Function; Complete Time: 15:06 01/04 15:04 Interpretation: Normal except: ALK 226; BILID 0.3; TP 6.3; ALB 2.2; GLOB 4.1; A/G 0.5. 01/04 12:03 Order name: Lipase; Complete Time: 15:06 01/04 12:03 Order name: Magnesium; Complete Time: 15:06 01/04 12:03 Order name: Urine Microscopic Only 01/04 12:05 Order name: Basic Metabolic Panel; Complete Time: 15:06 EDMS 01/04 15:04 Interpretation: Normal except: GLUC 158; BUN 43; CRE 1.78; GFR 40. 01/04 12:05 Order name: CBC with Automated Diff; Complete Time: 12:41 EDMS 01/04 15:05 Interpretation: Normal except: WBC 4.8; RBC 3.78; HGB 10.1; HCT 31.0; MCH 26.6; PLT cp 179; RDW 16.4; MPV 6.1; ANUP% 78.5; LYM% 8.4; LYMA 0.4. 01/04 12:05 Order name: Creatinine (Radiology Only); Complete Time: 12:43 EDMS 01/04 12:42 Order name: XRAY Chest (1 view); Complete Time: 15:06 01/04 17:52 Order name: BNP 01/04 12:03 Order name: IV Saline Lock; Complete Time: 12:10 01/04 12:03 Order name: Labs collected and sent; Complete Time: 12:10 01/04 13:07 Order name: Abdomen ; Complete Time: 15:06 EDMS 01/04 17:52 Order name: EKG; Complete Time: 17:53 cp 01/04 17:52 Order name: EKG - Nurse/Tech; Complete Time: 18:08 cp EC:10 Rate is 116 beats/min. Rhythm is regular. ME interval is normal. QRS interval is cp prolonged at 118 msec. T waves are Inverted in leads aVL, V2. Interpreted by me. Reviewed by me. Administered Medications: 12:21 Drug: Pepcid 20 mg Route: IVP; Site: right antecubital; hb 13:14 Follow up: Response: No adverse reaction em 12:23 Drug: Zofran 4 mg Route: IVP; Site: right antecubital; hb 13:13 Follow up: Response: No adverse reaction em 12:25 Drug: fentaNYL (PF) 25 mcg Route: IVP; Site: right antecubital; hb 13:13 Follow up: Response: No adverse reaction; Pain is decreased em 12:26 Drug: NS 0.9% 500 ml Route: IV; Rate: bolus; Site: right antecubital; em 13:13 Follow up: IV Status: Completed infusion; IV Intake: 500ml em 16:02 Drug: Albuterol - atroVENT (3:1) (2.5 mg - 0.5 mg) 3 ml Route: Nebulizer; em 17:34 Follow up: Response: No adverse reaction; Marked relief of symptoms em 16:27 Drug: Lasix 40 mg Route: IVP; Site: right antecubital; hb 17:36 Follow up: Response: No adverse reaction em 17:55 Drug: Magnesium Sulfate 1 grams Route: IVPB; Infused Over: 1 hrs; Site: right em antecubital; 19:05 Follow up: Response: No adverse reaction; IV Status: Completed infusion ed1 Disposition: 01/04/19 18:13 Hospitalization ordered by Hola Tinsley for Observation. Preliminary diagnosis are Acute on chronic combined systolic (congestive) and diastolic (congestive) heart failure, Hypoxemia. - Bed requested for Telemetry/MedSurg (observation). - Status is Observation. ed1 - Condition is Stable. - Problem is an acute exacerbation. - Symptoms have improved. UTI on Admission? No Addendum: 01/07/2019 11:57 Co-signature as Attending Physician, Cesar Woodall MD I agree with the assessment and k dr plan of care. Signatures: Dispatcher [employer] [facility] Cesar Woodall MD MD [facility] John Preciado, CIGAR MACHINE FEEDER CIGAR MACHINE FEEDER em Shannen Waddell RN RN ed1 Rey Haynes PA PA cp Lisa Stockton RN RN Leah Ramos RN RN Corrections: (The following items were deleted from the chart) 01/04 13:01 12:45 Abdomen Pelvis W Con+CT.RAD.BRZ ordered. EDDC EDDC 13:07 12:47 Abdomen Pelvis W Con+CT.RAD.BRZ ordered. [facility] EDDC 16:39 16:37 01/04/2019 16:37 Discharged to Home. Impression: Ascites; Unspecified abdominal cp pain. Condition is Stable. Forms are Medication Reconciliation Form, Thank You Letter, Antibiotic Education, Prescription Opioid Use. Follow up: Jono Hui; When: 2 - 3 days; Reason: ascitis. Follow up: Private Physician; When: 2 - 3 days; Reason: Recheck today's complaints. Problem is an ongoing problem. Symptoms have improved. cp 17:52 16:39 01/04/2019 16:37 Discharged to Home. Impression: Ascites; Unspecified abdominal cp pain; Constipation. Condition is Stable. Discharge Instructions: Abdominal Pain, Adult, Ascites, Constipation, Adult. Prescriptions for Lactulose 10 gram/15 mL Oral Solution - take 20 milliliter by ORAL route once daily As needed; 200 milliliter. and Forms are Medication Reconciliation Form, Thank You Letter, Antibiotic Education, Prescription Opioid Use. Follow up: Jono Hui; When: 2 - 3 days; Reason: ascitis. Follow up: Private Physician; When: 2 - 3 days; Reason: Recheck today's complaints. Problem is an ongoing problem. Symptoms have improved. cp 19: 18:13 Hospitalization Ordered by Hola Tinsley DO for Observation. Preliminary cg diagnosis is Acute on chronic combined systolic (congestive) and diastolic (congestive) heart failure; Hypoxemia. Bed requested for Telemetry/MedSurg (observation). Status is Observation. Condition is Stable. Problem is an acute exacerbation. Symptoms have improved. UTI on Admission? No. cp 20:07 19:09 01/04/2019 18:13 Hospitalization Ordered by Hola Tinsley DO for Observation. ed1 Preliminary diagnosis is Acute on chronic combined systolic (congestive) and diastolic (congestive) heart failure; Hypoxemia. Bed requested for Telemetry/MedSurg (observation). Status is Observation. Condition is Stable. Problem is an acute exacerbation. Symptoms have improved. UTI on Admission? No. cg
--- NOTE | 2019-01-04 16:39 | ER ---
Nurse's Notes [facility] Name: Savage Szymanski Age: 53 yrs Sex: Male : 1965 Arrival Date: 01/04/2019 Time: 11:49 Bed 20 Private MD: Diagnosis: Acute on chronic combined systolic (congestive) and diastolic (congestive) heart failure;Hypoxemia Presentation: 01/04 11:49 Presenting complaint: EMS states: called out for SOB and abdominal pain, reports not em having a BM in 4-5 days, denies N/V, also reports cough for about 6 months. Transition of care: patient was not received from another setting of care. Onset of symptoms was December 31, 2018. Risk Assessment: Do you want to hurt yourself or someone else? Patient reports no desire to harm self or others. Initial Sepsis Screen: Does the patient meet any 2 criteria? No. Patient's initial sepsis screen is negative. Does the patient have a suspected source of infection? No. Patient's initial sepsis screen is negative. Care prior to arrival: None. 11:49 Method Of Arrival: EMS: [facility] em 11:56 Acuity: ROSA 3 hb Triage Assessment: 11:52 General: Appears in no apparent distress. uncomfortable, Behavior is calm, cooperative. em Pain: Complains of pain in chest and abdomen. GI: Abdomen is round distended. Historical: - Allergies: 11:52 No Known Allergies; em - Home Meds: 11:52 Metformin Oral [Active]; Metoprolol Tartrate Oral [Active]; em - PMHx: 11:52 CHF; Diabetes - IDDM; GERD; Hypertension; legally blind; em - PSHx: 11:52 juan. below the knee amputations; em - Immunization history:: Adult Immunizations up to date. - Social history:: Smoking status: Patient uses tobacco products, chewing tobacco. - Ebola Screening: : Patient negative for fever greater than or equal to 101.5 degrees Fahrenheit, and additional compatible Ebola Virus Disease symptoms Patient denies exposure to infectious person Patient denies travel to an Ebola-affected area in the 21 days before illness onset No symptoms or risks identified at this time. Screenin:54 Abuse screen: Denies threats or abuse. Nutritional screening: No deficits noted. em Tuberculosis screening: No symptoms or risk factors identified. Fall Risk None identified. Assessment: 11:52 General: Appears in no apparent distress. comfortable, Behavior is calm, cooperative, em Denies fever. Pain: Complains of pain in abdomen and chest Pain does not radiate. Pain currently is 8 out of 10 on a pain scale. Quality of pain is described as sharp, Pain began 2-3 days ago. Neuro: Level of Consciousness is awake, alert, obeys commands, Oriented to person, place, time, situation. Cardiovascular: Reports chest pain, shortness of breath, Denies nausea, vomiting, Capillary refill < 3 seconds Patient's skin is warm and dry. Respiratory: Reports cough that is productive, Airway is patent Respiratory effort is even, unlabored, Breath sounds are clear bilaterally. GI: Abdomen is round distended, Bowel sounds present X 4 quads. Abd is rigid X 4 quads. Reports constipation, since 4-5 days ago Patient currently denies diarrhea, nausea, vomiting. : Denies burning with urination. Derm: Skin is intact, is healthy with good turgor, Skin is pink, warm \\T\\ dry. Musculoskeletal: Capillary refill < 3 seconds, Range of motion: intact in all extremities. 12:05 Reassessment: I agree with the assessment made by John NULL. sg 13:20 Reassessment: Patient appears in no apparent distress at this time. pt cleaned of sg incontinence and placed into a clean brief, warm blankets x2 at this time. 14:16 Reassessment: Patient appears in no apparent distress at this time. Patient and/or em family updated on plan of care and expected duration. Pain level reassessed. Patient is alert, oriented x 3, equal unlabored respirations, skin warm/dry/pink. 14:35 Reassessment: Patient appears in no apparent distress at this time. wheeled to CT via em stretcher. 15:30 Reassessment: Patient appears in no apparent distress at this time. Patient and/or em family updated on plan of care and expected duration. Pain level reassessed. Patient is alert, oriented x 3, equal unlabored respirations, skin warm/dry/pink. 17:32 Reassessment: pt removed off NC prior to discharge, desat. to 89% RA, provider em notified, placed back on 2 LPM via NC. 17:55 Reassessment: Dr. Prezas at bedside. em 18:40 Reassessment: Patient appears in no apparent distress at this time. Patient and/or em family updated on plan of care and expected duration. Pain level reassessed. Patient is alert, oriented x 3, equal unlabored respirations, skin warm/dry/pink. eating dinner tray, ate 100%, tolerated well. 19:35 Reassessment: Patient appears in no apparent distress at this time. Patient and/or ed1 family updated on plan of care and expected duration. Pain level reassessed. Patient is alert, oriented x 3, equal unlabored respirations, skin warm/dry/pink. Respiratory: O2 at 2L via NC. Vital Signs: 11:52 BP 129 / 90; Pulse 99; Resp 22; Temp 98.0(O); Pulse Ox 99% on 2 lpm NC; Weight 81.65 em kg; Pain 8/10; 13:00 BP 130 / 86; Pulse 86; Resp 20; Pulse Ox 100% on 2 lpm NC; em 14:00 BP 143 / 86; Pulse 91; Resp 18; Pulse Ox 99% on 2 lpm NC; em 15:02 BP 150 / 90; Pulse 92; Resp 20; Temp 97.7(TE); Pulse Ox 95% on 2 lpm NC; em 15:55 BP 132 / 91; Pulse 93; Resp 20; Temp 98.3(TE); Pulse Ox 100% on 2 lpm NC; mh5 17:23 BP 137 / 84; Pulse 115; Resp 20; Temp 98.6(TE); Pulse Ox 88% on R/A; mh5 17:39 BP 133 / 83; Pulse 115; Resp 22; Temp 98.1(O); Pulse Ox 98% on 2 lpm NC; em 18:39 BP 127 / 89; Pulse 114; Resp 20; Pulse Ox 100% on R/A; Pain 7/10; em 19:35 BP 115 / 88; Pulse 114; Resp 18; Temp 97.9(O); Pulse Ox 100% on 2 lpm NC; Pain 7/10; ed1 ED Course: 11:49 Patient arrived in ED. em 11:49 [facility] cp 11:49 Cesar Woodall MD is Attending Physician. cp 11:52 Arm band placed on. em 11:54 Patient has correct armband on for positive identification. Placed in gown. Bed in low em position. Call light in reach. Side rails up X2. Pulse ox on. NIBP on. 11:56 Triage completed. hb 12:05 Initial lab(s) drawn, by me, sent to lab. Inserted saline lock: 20 gauge in right em antecubital area, using aseptic technique. Blood collected. 12:07 John Preciado LVN is Primary Nurse. em 13:11 XRAY Chest (1 view) In Process Unspecified. EDMS 14:36 Abdomen In Process Unspecified. EDMS 16:36 Jono Hui MD is Referral Physician. cp 18:13 Hola Tinsley DO is Hospitalizing Provider. cp 19:10 Primary Nurse role handed off by John Preciado LVN ed1 19:10 Shannen Waddell, NARESH is Primary Nurse. ed1 19:36 No provider procedures requiring assistance completed. Patient admitted, IV remains in ed1 place. intact, No redness/swelling at site. 19:46 Awaiting: Nurse on second floor to accept report. Fuentes stated "That nurse is in a ed1 room with a patient. She will call you back.". Administered Medications: 12:21 Drug: Pepcid 20 mg Route: IVP; Site: right antecubital; hb 13:14 Follow up: Response: No adverse reaction em 12:23 Drug: Zofran 4 mg Route: IVP; Site: right antecubital; hb 13:13 Follow up: Response: No adverse reaction em 12:25 Drug: fentaNYL (PF) 25 mcg Route: IVP; Site: right antecubital; hb 13:13 Follow up: Response: No adverse reaction; Pain is decreased em 12:26 Drug: NS 0.9% 500 ml Route: IV; Rate: bolus; Site: right antecubital; em 13:13 Follow up: IV Status: Completed infusion; IV Intake: 500ml em 16:02 Drug: Albuterol - atroVENT (3:1) (2.5 mg - 0.5 mg) 3 ml Route: Nebulizer; em 17:34 Follow up: Response: No adverse reaction; Marked relief of symptoms em 16:27 Drug: Lasix 40 mg Route: IVP; Site: right antecubital; hb 17:36 Follow up: Response: No adverse reaction em 17:55 Drug: Magnesium Sulfate 1 grams Route: IVPB; Infused Over: 1 hrs; Site: right em antecubital; 19:05 Follow up: Response: No adverse reaction; IV Status: Completed infusion ed1 Intake: 13:13 IV: 500ml; Total: 500ml. em Outcome: 16:37 Discharge ordered by . cp 18:13 Decision to Hospitalize by Provider. cp 20:06 Admitted to Med/surg accompanied by tech, via stretcher, room 222, with oxygen, with ed1 chart, Report called to NARESH Molina 20:06 Condition: stable 20:06 Discharge instructions given to patient, Instructed on the need for admit, Demonstrated understanding of instructions. 20:07 Patient left the ED. ed1 Signatures: Dispatcher [employer] Melvin Coker RN NARESH John Preciado LVN [employer] Shannen Wesley RN RN ed1 Rey Haynes PA PA cp Baxter, Heather, RN RN hb Martinez, Maria [facility] Corrections: (The following items were deleted from the chart) 15:53 13:00 BP 130 / 86; Pulse 86bpm; Resp 20bpm; Pulse Ox 100% RA; em em 15:53 14:00 BP 143 / 86; Pulse 91bpm; Resp 18bpm; Pulse Ox 99% RA; em em 15:53 15:02 BP 150 / 90; Pulse 92bpm; Resp 20bpm; Pulse Ox 95% RA; Temp 97.7F Temporal; mh5 em 17:37 17:32 Reassessment: pt removed off NC prior to discharge, desat. to 89% RA, provider em notified em 17:40 17:39 Temp 98.1F Oral; em em 18:46 18:39 BP 127 / 89; Pulse 121bpm; Resp 20bpm; Pulse Ox 100% RA; Pain 7/10; em em
[2019-01-04] MEDS ORDERED: MAGNESIUM SULFATE 1 gm IVPB 1 GM/100 ML BAG IV ONE (18:07)
--- NOTE | 2019-01-04 20:03 | P.HP ---
Certification for Inpatient Patient admitted to: Observation With expected LOS: <2 Midnights Practitioner: I am a practitioner with admitting privileges, knowledge of patient current condition, hospital course, and medical plan of care. Services: Services provided to patient in accordance with Admission requirements found in Title 42 Section 412.3 of the Code of Federal Regulations Patient History Date of Service: 01/04/19 Reason for admission: SOB History of Present Illness: Ms Szymanski is a 53 years old male with history uncontrolled DM II, S/P bilateral BKA, HTN, chronic diastolic CHF, medication noncompliance, who came to ED complaining of progressive SOB. He also has had some chest tightness and abdominal pain. Denied cough, fever, or chills. EKG shows normal sinus rhythm at 115 bpm, RBBB (old), CXR shows no significant changes with previous one. Lab work remarkable for normal WBC count, elevated creatinine (about baseline). CT abd/pelvis shows ascites, right pleural effusion, similar to previous studies. During his stay in ED his O2 sat was mostly above 92%, however, there was one time of 88%, he was placed on O2 then. Allergies No Known Allergies Allergy (Verified 01/15/16 12:59) Home medications list reviewed: Yes Home Medications: Apixaban [Eliquis *] 2.5 mg PO BID #60 tablet 01/21/16 Atorvastatin Calcium [Lipitor] 1 tab PO BEDTIME #30 tablet 01/21/16 Docusate [Colace Cap*] 100 mg PO DAILY #30 cap 01/21/16 Glipizide S.a. [Glucotrol Xl*] 5 mg PO DAILY WITH BREAKFAST #30 tab 01/21/16 Metformin HCl [Glucophage*] 500 mg PO BIDWM #60 tab 01/21/16 Tramadol HCl [Ultram] 1 tab PO Q6HP PRN #60 tablet 01/21/16 Furosemide [Lasix*] 20 mg PO BIDL #60 tab 12/26/18 Metoprolol Tartrate [Lopressor*] 12.5 mg PO BID 6AM 6PM #60 tab 12/26/18 - Past Medical/Surgical History Diabetic: Yes -: Hypertension -: Hyperlipidemia -: Diabetes mellitus type 2 -: CAD with history of AL -: GERD -: Tobacco abuse -: Diastolic CHF -: Morbid obesity -: History bilateral below-knee amputation -: HERNIA REPAIR -: L and R BKA Psychosocial/ Personal History: Patient lives at home. He reports that he has home health. - Family History Mother -: Diabetes Father -: Heart disease - Social History Smoking Status: Current every day smoker (chew tobacco) Alcohol use: No CD- Drugs: No Caffeine use: Yes Place of Residence: Home Review of Systems 10-point ROS is otherwise unremarkable Physical Examination - Physical Exam General: Alert, In no apparent distress HEENT: Atraumatic, PERRLA, Mucous membr. moist/pink, EOMI, Sclerae nonicteric Neck: Supple, 2+ carotid pulse no bruit, No LAD, Without JVD or thyroid abnormality Respiratory: Diminished, Crackles/rales (bibasilar rales) Cardiovascular: Regular rate/rhythm, Normal S1 S2 Gastrointestinal: Normal bowel sounds, No tenderness Musculoskeletal: No tenderness Integumentary: No rashes Neurological: Normal speech, Normal strength at 5/5 x4 extr, Normal tone, Normal affect Lymphatics: No axilla or inguinal lymphadenopathy - Studies Laboratory Data (last 24 hrs) 01/04/19 12:10: Creatinine 1.77 H 01/04/19 12:10: WBC 4.8 D, Hgb 10.1 L, Hct 31.0 L D, Plt Count 179 D 01/04/19 12:10: Sodium 138, Potassium 4.2, BUN 43 H, Creatinine 1.78 H, Glucose 158 H, Magnesium 1.7 L, Total Bilirubin 0.8, AST 21, ALT 16, Alkaline Phosphatase 226 H, Lipase 39 L Assessment and Plan - Problems (Diagnosis) (1) Acute on chronic kidney failure Current Visit: No Status: Acute Qualifiers: Acute renal failure type: unspecified Chronic kidney disease stage: stage 3 (moderate) Qualified Code(s): N17.9 - Acute kidney failure, unspecified; N18.3 - Chronic kidney disease, stage 3 (moderate) (2) Ascites Current Visit: No Status: Acute Qualifiers: Ascites type: other type Qualified Code(s): R18.8 - Other ascites (3) Diastolic dysfunction with acute on chronic heart failure Current Visit: No Status: Acute (4) CAD (coronary artery disease) Current Visit: No Status: Chronic Qualifiers: Coronary Disease-Associated Artery/Lesion type: [place] artery [place] vs. transplanted heart: [place] heart Associated angina: without angina Qualified Code(s): I25.10 - Atherosclerotic heart disease of [place] coronary artery without angina pectoris (5) Diabetes mellitus Onset Date: 06/05/15 Current Visit: No Status: Chronic Qualifiers: Diabetes mellitus type: type 2 Diabetes mellitus usp insulin use: without real estate financial analyst use Diabetes mellitus complication status: without complication Qualified Code(s): E11.9 - Type 2 diabetes mellitus without complications (6) Hypertension Onset Date: 06/05/15 Current Visit: No Status: Chronic Qualifiers: Hypertension type: essential hypertension Qualified Code(s): I10 - Essential (primary) hypertension - Plan The patient will be admitted to the hospital under observation due to acute on chronic diastolic CHF. Unfortunately the patient is no taking any medication at home. Will continue IV lasix, monitory his body fluid balance. SSI for BS control. - Advance Directives Does patient have a Living Will: No Does patient have a Durable POA for Healthcare: No - Code Status/Comfort Care Code Status Assessed: Yes Code Status: Full Code
[2019-01-04] MEDS ORDERED: DOCUSATE NA 100 MG CAP PO PRN (21:36)
[2019-01-04] MEDS: INSULIN -REGULAR HUMAN 50 UNIT/0.5 ML ML SQ SCH (21:36)
[2019-01-04] MEDS ORDERED: ACETAMINOPHEN 500 MG TAB PO PRN (21:36)
[2019-01-04] MEDS ORDERED: ONDANSETRON 4 MG/2 ML VIAL IV PRN (21:36)
[2019-01-04 22:09] VITALS: BMI 28.0
[2019-01-04] MEDS: ATORVASTATIN 10 MG TAB PO SCH (22:45)
[2019-01-05] MEDS: TRAMADOL HCL 50 MG TAB PO PRN ×2 (03:16→20:42)
[2019-01-05 03:49] LABS: Urine Appearance CLEAR; Urine Bilirubin NEGATIVE (NEG); Urine Blood NEGATIVE (NEG); Urine Color YELLOW; Urine Glucose NEGATIVE (NEG); Urine Protein NEGATIVE (NEG); Urine Specific Gravity 1.015 (1.005-1.030)
[2019-01-05 04:23] LABS: Urine Microscopic Reflex NO UMIC
[2019-01-05] MEDS ORDERED: LORazepam 2 MG/ML VIAL IV ONE (04:38)
[2019-01-05 06:01] LABS: Absolute Lymphocytes (CBC) 0.3 K/uL (0.7-4.9); Basophils % 0.4 % (0-1.3); Hematocrit 28.4 % (39.6-49.0); RBC Red Blood Cell Count 3.46 M/uL (4.33-5.43)
[2019-01-05 06:14] LABS: Magnesium 1.8 mg/dL (1.8-2.4); Potassium 4.7 mmol/L (3.5-5.1)
[2019-01-05] MEDS ORDERED: PANTOPRAZOLE 40MG TABLET PO SCH (06:30)
[2019-01-05] MEDS: METOPROLOL TAR 25 MG TAB PO SCH ×2 (06:41→17:11)
[2019-01-05] MEDS: INSULIN -REGULAR HUMAN 50 UNIT/0.5 ML ML SQ SCH ×4 (07:30→20:47)
--- NOTE | 2019-01-05 08:08 | EKG ---
Test Date: 2019-01-04 Test Time: 18:04:50 Mottler Operator: MIGUELITO MEASUREMENT RESULTS: Intervals: Rate: 116 WY: 150 QRSD: 118 QT: 350 QTc: 486 [place]: P: 54 WY: 150 QRS: -83 T: 74 INTERPRETIVE STATEMENTS: Sinus tachycardia Right bundle branch block Left axis Septal infarct, age undetermined Lateral infarct, age undetermined Abnormal ECG Compared to ECG 12/21/2018 22:38:29 Right bundle-branch block now present Incomplete right bundle-branch block no longer present Myocardial infarct finding still present Electronically Signed On 01-05-19 08:07:45 CDT by Marco A Tinsley
[2019-01-05] MEDS ORDERED: MAGNESIUM SULFATE 1 gm IVPB 1 GM/100 ML BAG IV ONE (09:00)
[2019-01-05] MEDS ORDERED: FUROSEMIDE 40 MG/4 ML VIAL IV SCH ×2 (09:00→17:00)
[2019-01-05] MEDS ORDERED: ENOXAPARIN 40 MG/0.4 ML SQ SCH (09:00)
--- NOTE | 2019-01-05 11:30 | RAD REPORT ---
EXAM DESCRIPTION: RAD - Chest Single View - 01/05/2019 7:24 am CLINICAL HISTORY: Follow up CHF Chest pain. COMPARISON: Chest Single View dated 01/04/2019; Chest Single View dated 12/23/2018; Abdomen Acute Serie s dated 12/22/2018; Chest Single View dated 11/06/2018 FINDINGS: Portable technique limits examination quality. Since 01/04/2019, mild worsening in the bilateral pulmonary opacities are seen with underinflated gina gs. The heart is mildly enlarged in size. No displaced fractures.
--- NOTE | 2019-01-05 13:35 | CON ---
Date of Consultation: 01/05/2019 Consulting Physicians: Dr. Tinsley/Dr. Fang Piper Reason For Consultation: Elevated BUN and creatinine, fluid management. 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 Upon discharge, his creatinine was 1.8 with GFR of 40 with normal size kidney at that time, o bstructive uropathy has been ruled out. The impression was chronic kidney disease, normal size; prot ein uric, nonnephrotic secondary to diabetes nephropathy/cardiorenal. The patient was in his regular state of health. Discharged from the hospital on , came back complaining from shortness of breat h and increase of abdominal girth and tachycardia. The patient lab showed elevation in BUN and creat inine for that reason we have been consulted. The patient denied any fever, any chills. The patient denied any recent change in his medication, no IV contrast. The patient had CT abdomen and pelvis w ithout any contrast, showed increase of ascites to moderate amount, but showing subcutaneous fluid re tention has been increased. Past Medical History: Include: 1.Diabetes complicated with neuropathy and nephropathy. 2.Peripheral vascular disease. 3.Coronary artery disease status post non-ST elevation [place] complicated by diastolic CHF. 4.Hyperlipidemia. 5.Chronic kidney disease 3. Normal size kidney, proteinuric, nonnephrotic, secondary to diabetes/ca rdiorenal. Baseline creatinine 1.5-1.7, GFR 40. 6.Peripheral vascular disease status post below-knee amputation, bilateral. Past Surgical History: Include below-knee amputation. Family History: Positive for hypertension. Social History: Lives alone. Denies smoking. Denies drinking. Denies drugs abuse. Home Medications: Include Eliquis, atorvastatin, docusate, glipizide, and tramadol. Review of Systems: Head and Neck: No red eye. No ear pain. GI: Has increased abdominal girth, decreased intake, nausea without any vomiting. : No polyuria. No dysuria. No hematuria. OBSTETRIC ASSISTANT: Not applicable. Respiratory: Shortness of breath. Cardiovascular: He has chest tightness. Endocrine: No polydipsia. Skin: No rash. Neurology: Has neuropathy. Musculoskeletal: Low back pain. Current Medication In The Hospital: Includes Tylenol, atorvastatin, Lasix 40 b.i.d., metoprolol, lal toprazole, and tramadol. Physical Examination: Vital Signs: When I saw the patient blood pressure of 118/74, pulse of 115, afebrile. Chest: Clear to auscultation. Only faint crackles on the left base. Heart: S1, S2. Systolic murmur. Abdomen: Ascites. Extremities: Bilateral below amputation. Neurologic: Alert. Moving 4 extremities without any focality. Laboratory Data: Urine specific gravity of 1.015. Sodium 139, potassium 4.7, bicarb 28, BUN 47, cre atinine 1.8, GFR of 39, calcium 9.8, and magnesium 1.8. WBC 5.3, H and H 9.3/28.4, and platelet 163. Chest x-ray, cardiomegaly with congestion. Assessment And Plan: 1.Chronic kidney disease, stable on baseline over volume with mild respiratory distress, proteinuric nonnephrotic. I am going to go ahead and increase Lasix to 60 mg b.i.d. 2.We will consider paracentesis to rule out any compartment component for the renal failure and we w ill follow up, place the patient on a fluid restriction. 3.Hypertension. We will utilize blood pressure for more diuresis. 4.Cirrhosis with ascites and anasarca. TSH within normal limit and BMP within normal limit. Echoca rdiogram from last visit showing normal ejection fraction. The patient is known to have diastolic dy sfunction. We will continue diuresis. 5.Cirrhosis with ascites. We will follow up with the primary. We will send for hepatitis panel. 6.Diabetes, as by primary. 7.Peripheral vascular disease, as by primary. SHILPA/ALCIRA Voice ID: [id number] Report ID: [id number]
--- NOTE | 2019-01-05 14:41 | P.PN ---
Subjective Date of Service: 01/05/19 Chief Complaint: SOB pt seen and examined mentioned that his abdominal pain and SOB resolved and wants to go home Review of Systems 10-point ROS is otherwise unremarkable Physical Examination - Vital Signs Temperature: 98.2 F Blood Pressure: 135/78 Pulse: 97 Respirations: 19 Pulse Ox (%): 94 - Physical Exam General: Alert, Oriented x3 HEENT: Atraumatic, Normocephalic, PERRLA Neck: Supple Respiratory: Rhonchi/gurgles Cardiovascular: No edema, Regular rate/rhythm, Normal S1 S2 Gastrointestinal: Normal bowel sounds, Distended, Ascites Musculoskeletal: Other (b/l BKA ) Integumentary: No rashes Neurological: Normal speech Assessment And Plan - Plan SOB most likley mixed etiology CKD,diastolic chf and ascites woth medications non compliance abdominal pain and ascites liver cirrhosis acute on chronic diastolic chf CKD HTn DM type 2 b/l BKA plan: IV lasix daily weight I& O o2 prn Gi consult for cirrhosis f/up hepatitis profile IR guided thoracentesis therpeutic and diagnostic and to r/o spb resume home meds-pt was not taking his home meds social media marketing analyst consult for safe discharge dvt ppx Discharge Plan: Home Plan to discharge in: 48 Hours
[2019-01-05 15:04] LABS: Absolute Lymphocytes (CBC) 0.4 K/uL (0.7-4.9); Basophils % 0.5 % (0-1.3); Hematocrit 28.6 % (39.6-49.0); Lymphocytes % 7.7 % (15.3-44.8); MPV 5.8 fL (7.6-11.3); RBC Red Blood Cell Count 3.47 M/uL (4.33-5.43)
[2019-01-05 15:17] LABS: Potassium 4.9 mmol/L (3.5-5.1)
[2019-01-05] MEDS: ATORVASTATIN 10 MG TAB PO SCH (20:39)
[2019-01-05 22:01] VITALS: O2SAT 97
[2019-01-06 01:19] VITALS: BP 109/68; TEMP 99.1
[2019-01-06] MEDS ORDERED: LORazepam 2 MG/ML VIAL IV ONE (01:27)
[2019-01-06] MEDS ORDERED: D50W 25 GM/50 ML SYRINGE IV ONE (04:04)
[2019-01-06] MEDS ORDERED: ATROPINE SULF 1 MG/10 ML SYR IV ONE (04:04)
[2019-01-06] MEDS ORDERED: Caclcium Chloride 10% INJ SYR IV ONE (04:04)
[2019-01-06] MEDS ORDERED: EPINEPHrine 1 MG/10 ML SYR IV ONE (04:04)
--- NOTE | 2019-01-06 04:17 | P.DS ---
Admission Date: 01/04/19 Discharge Date: 01/06/19 Disposition: Reason for Admission: SOB - Problems (1) Acute on chronic kidney failure Current Visit: No Status: Acute Qualifiers: Acute renal failure type: unspecified Chronic kidney disease stage: stage 3 (moderate) Qualified Code(s): N17.9 - Acute kidney failure, unspecified; N18.3 - Chronic kidney disease, stage 3 (moderate) (2) Ascites Current Visit: No Status: Acute Qualifiers: Ascites type: other type Qualified Code(s): R18.8 - Other ascites (3) Diastolic dysfunction with acute on chronic heart failure Current Visit: No Status: Acute (4) CAD (coronary artery disease) Current Visit: No Status: Chronic Qualifiers: Coronary Disease-Associated Artery/Lesion type: [place] artery [place] vs. transplanted heart: [place] heart Associated angina: without angina Qualified Code(s): I25.10 - Atherosclerotic heart disease of [place] coronary artery without angina pectoris (5) Diabetes mellitus Onset Date: 06/05/15 Current Visit: No Status: Chronic Qualifiers: Diabetes mellitus type: type 2 Diabetes mellitus intermediate insulin use: without forklift wheel loader use Diabetes mellitus complication status: without complication Qualified Code(s): E11.9 - Type 2 diabetes mellitus without complications (6) Hypertension Onset Date: 06/05/15 Current Visit: No Status: Chronic Qualifiers: Hypertension type: essential hypertension Qualified Code(s): I10 - Essential (primary) hypertension Brief History of Present Illness: Ms Szymanski is a 53 years old male with history uncontrolled DM II, S/P bilateral BKA, HTN, chronic diastolic CHF, medication noncompliance, who came to ED complaining of progressive SOB. He also has had some chest tightness and abdominal pain. Denied cough, fever, or chills. EKG shows normal sinus rhythm at 115 bpm, RBBB (old), CXR shows no significant changes with previous one. Lab work remarkable for normal WBC count, elevated creatinine (about baseline). CT abd/pelvis shows ascites, right pleural effusion, similar to previous studies. During his stay in ED his O2 sat was mostly above 92%, however, there was one time of 88%, he was placed on O2 then. Hospital Course: The patient was admitted to the hospital due to acute on chronic diastolic CHF, acute on chronic renal failure. He was treated with IV Lasix, Dr Jiménez was following the patient and adjusting diuretic treatment according renal function. He has been agitated during his stay. Today, about 3:50 AM, the patient was found unresponsive, immediately code blue was called. The patient was in asystole. He was successfully intubated, Advance ACLS was started. Despite several rounds of epinephrine, the patient did not response to resuscitation maneuvers. At about 4:05 he was called . Vital Signs/Physical Exam: Temp Pulse Resp BP Pulse Ox 99.1 F 87 18 109/68 96 01/06/19 00:00 01/06/19 00:00 01/06/19 00:00 01/06/19 00:00 01/06/19 00:00 Laboratory Data at Discharge: WBC 5.1 K/uL (4.3-10.9) 01/05/19 14:56 Hgb 9.2 g/dL (13.6-17.9) L 01/05/19 14:56 Hct 28.6 % (39.6-49.0) L 01/05/19 14:56 Plt Count 155 K/uL (152-406) 01/05/19 14:56 Sodium 139 mmol/L (136-145) 01/05/19 14:56 Potassium 4.9 mmol/L (3.5-5.1) 01/05/19 14:56 BUN 50 mg/dL (7-18) H 01/05/19 14:56 Creatinine 1.91 mg/dL (0.55-1.3) H 01/05/19 14:56 Glucose 126 mg/dL (74-106) H 01/05/19 14:56 Magnesium 1.8 mg/dL (1.8-2.4) 01/05/19 05:38 Total Bilirubin 0.8 mg/dL (0.2-1.0) 01/04/19 12:10 AST 21 U/L (15-37) 01/04/19 12:10 ALT 16 U/L (12-78) 01/04/19 12:10 Alkaline Phosphatase 226 U/L (45-117) H 01/04/19 12:10 Lipase 39 U/L (73-393) L 01/04/19 12:10 Home Medications: Furosemide [Lasix*] 20 mg PO DAILY 01/05/19 Metoprolol Succinate [Toprol Xl*] 25 mg PO BID 01/05/19
== END 2019-01-06 04:05 | disposition expired ==
LOC: ER 11:43 → ERHOLD 18:42 → 2ND 19:53
PROVIDERS: ADMIT Family Medicine; ATTEND Internal Medicine
PROC: 5A12012 Performance of Cardiac Output, Single, Manual (ICD-10-PCS; principal; 2019-01-06)
PROC: 0BH17EZ Insertion of Endotracheal Airway into Trachea, Via Natural or Artificial Opening (ICD-10-PCS; 2019-01-06)
DX: I46.9 Cardiac arrest, cause unspecified (principal); I13.0 Hypertensive heart and chronic kidney disease with heart failure and stage 1 through stage 4 chronic kidney disease, or unspecified chronic kidney disease; I50.33 Acute on chronic diastolic (congestive) heart failure; N17.9 Acute kidney failure, unspecified; R18.8 Other ascites; N18.3 Chronic kidney disease, stage 3 (moderate); E11.22 Type 2 diabetes mellitus with diabetic chronic kidney disease; Z89.512 Acquired absence of left leg below knee; Z89.511 Acquired absence of right leg below knee; Z91.14 Patient's other noncompliance with medication regimen; I25.10 Atherosclerotic heart disease of native coronary artery without angina pectoris; E11.40 Type 2 diabetes mellitus with diabetic neuropathy, unspecified; E11.21 Type 2 diabetes mellitus with diabetic nephropathy; I73.9 Peripheral vascular disease, unspecified
CPT/HCPCS: 36415; 71045; 74176; 80048; 80076; 81003; 82962; 83690; 83735; 83880; 85025; 93005; 94640; 96361; 96365; 96375; 97162; 99285; G0378; J0171; J1650; J1940; J2405; J3010; J3475